=== PATIENT | female | born 1945 | race Caucasian/White ===

== ENCOUNTER 2020-03-28 12:54 | Outpatient (CLI) | payer MEDICARE, MEDICAID, SELFPAY ==
--- NOTE | 2020-03-28 13:03 | XR_ITS ---
WS: [id number] XR knee RT 3V* [id number] REASON FOR EXAM: OSTEOARTHRITIS FINDINGS: Degenerated changes of the medial meniscus. There is calcification along the medial and lateral meniscus consistent with chondrocalcinosis. The patella femoral articulation shows degenerate changes and loss of the joint space. A large spur i s seen off the suprapatellar patella ligament. Narrowing the patella tibial space is seen XR/XR knee RT 3V* [id number] IMPRESSION: Moderately severe osteoarthritic changes of the knee Severe degenerated changes of the patella femoral articulation. Low-grade chondrocalcinosis of the menisci.
== END 2020-03-28 12:55 | disposition home or self-care (01) ==
LOC: RADWPI 13:01
PROVIDERS: Family Provider Nurse Practitioner Family; PCP Nurse Practitioner Family; Visit Provider Nurse Practitioner Family
DX: M17.11 Unilateral primary osteoarthritis, right knee (principal); M11.261 Other chondrocalcinosis, right knee
CPT/HCPCS: 73562

== ENCOUNTER 2020-06-15 12:30 | Outpatient (CLI) | payer MEDICARE, MEDICAID, SELFPAY ==
--- NOTE | 2020-06-15 | USCV_ITS ---
Cheyanne Fung Age: 74 Gender: F : 1945 Exam Date: 06/15/2020 13:19 Ordering Phys: Judith Leon NP Technologist: Brady Solis [place] [facility] [place]ication: POSTERIOR RIGHT KNEE PAIN PROCEDURES: Venous duplex imaging was performed in only the right lower extremity. The following venous structures were evaluated: common femoral vein, profunda vein, proximal portion of the greater saphenous vein, superficial femoral vein, and the popliteal vein. In addition, the posterior tibial and peroneal trunk were evaluated. Serial compression, augmentation maneuvers, and spectral Doppler flow evaluation were performed. FINDINGS: Normal 2-D Doppler and augmentation and compressibility throughout the lower extremity venous structures. Additional imaging through the proximal calf veins also reveals no thrombus. Limited evaluation of the greater saphenous vein is patent with no thrombus. CONCLUSIONS No DVT right lower extremity. Dr. Savanna Champagne DO (Electronically Signed) Final Date: 15 June 2020 14:31 S
== END 2020-06-15 12:31 | disposition home or self-care (01) ==
LOC: RAD 12:37
PROVIDERS: PCP Nurse Practitioner Family; Visit Provider Nurse Practitioner Family
DX: M25.561 Pain in right knee (principal)
CPT/HCPCS: 93971

== ENCOUNTER 2020-12-17 14:08 | Outpatient (CLI) | payer MEDICARE, MEDICAID, SELFPAY ==
--- NOTE | 2020-12-17 14:27 | XR_ITS ---
WS: [id number] LEFT FOOT: 2 VIEW(S) TECHNIQUE: AP and lateral. HISTORY: FOOT PAIN, LEFT COMPARISON: None available. No acute fracture or dislocation. Overlapping proximal metatarsals. Osteophyte noted on the lateral projection from the dorsal navicula r. Diffuse moderate osteopenia interphalangeal joint space narrowing. Small calcaneal spur. Enthesopathy at the Achilles tendon. Peripheral arterial disease. XR/XR foot LT 2V [id number] IMPRESSION: 1. Osteopenia with osteoarthritis. 2. No fracture identified. 3. Peripheral arterial disease.
== END 2020-12-17 14:09 | disposition home or self-care (01) ==
PROVIDERS: PCP Nurse Practitioner Family; Visit Provider Nurse Practitioner Family
DX: M85.872 Other specified disorders of bone density and structure, left ankle and foot (principal); M19.072 Primary osteoarthritis, left ankle and foot; I73.9 Peripheral vascular disease, unspecified
CPT/HCPCS: 73620

== ENCOUNTER → 2021-01-29 14:13 | Outpatient (BNVA) | payer MEDICARE, MEDICAID, SELFPAY | PROVIDERS: PCP Nurse Practitioner Family; Referring Provider Family Medicine; Visit Provider Podiatrist Foot & Ankle Surgery | DX: M25.572 Pain in left ankle and joints of left foot (principal) | CPT/HCPCS: 77077 ==

== ENCOUNTER 2021-02-27 15:19 | Outpatient (CLI) | payer MEDICARE, MEDICAID, SELFPAY ==
--- NOTE | 2021-02-27 15:45 | USCV_ITS ---
Cheyanne Fung Age: 75 Gender: F : 1945 Exam Date: 02/27/2021 15:11 Ordering Phys: Azeem Champion DPM Technologist: Paty Jameson [place] [facility] [place]: DECREASED PEDAL PULSES RIGHT LEFT Brachial 157.00 mmHg Brachial 139.00 mmHg Pressure (mmHg) Waveform Pressure (mmHg) Waveform 183.00 High Thigh 177.00 178.00 Below Knee 164.00 DRAFTER PATENT 176.00 194.00 DPA 193.00 1.24 Ankle/Brachial Index 1.23 114.00 Pre-Exercise Toe Pressure 119.00 Pre-Exercise Toe/Brachial Index 0.76 0.73 FINDINGS Normal resting ABIs bilaterally Normal resting TBIs bilaterally PVR waveforms showing some blunting of the dicrotic notch CONCLUSIONS No significant arterial obstruction, based on the above findings Some features of arterial sclerosis Dr Ana Etienne MD [facility] (Electronically Signed) Final Date: 28 Feb 2021 16:48 S
== END 2021-02-27 15:20 | disposition home or self-care (01) ==
LOC: US 15:22
PROVIDERS: PCP Nurse Practitioner Family; Visit Provider Podiatrist Foot & Ankle Surgery
DX: R09.89 Other specified symptoms and signs involving the circulatory and respiratory systems (principal)
CPT/HCPCS: 93923

== ENCOUNTER 2021-11-09 00:38 | Inpatient (IN) | payer MEDICARE, MEDICAID, SELFPAY ==
[2021-11-09] VITALS (29 sets, daily range): BP systolic 103–178; BP diastolic 65–104; PULSE 67–92; RESP 10–18; TEMP 36.2–37; O2SAT 90–100; BMI 40.7
--- NOTE | 2021-11-09 | XR_ITS ---
WS: [id number] INTRAOPERATIVE TECHNIQUE: 7 Spot fluoroscopic images for intraoperative purposes. FLUOROSCOPY TIME: 212 seconds CLINICAL INFORMATION: [facility] P[facility] COMPARISON: None. FINDINGS: Intramedullary kirit and screw fixation right proximal femoral diaphyseal fracture. Distal femoral kirit with fixation screws. Prior right TKA. XR/XR femur RT 1V [id number] IMPRESSION: Images obtained for intraoperative purposes.
--- NOTE | 2021-11-09 | SCC_ITS ---
Procedure done: 1. Right intrameduallary nail for subtrochanteric femur fracture 212.1 seconds of fluoroscopic guidance, for a cumulative dose of 30.23 mGy, was provided to Dr. Snell by the radiology department. C-arm images of the RIGHT femur were saved for the patient's permanent record. [facility]
--- NOTE | 2021-11-09 00:41 | ED_ITS ---
Documented by User: JESSE Harley 11/09/21 02:18 HPI - Extremity Injury (Lower) General: Chief Complaint: ER Hold Stated Complaint: LEG INJURY Time Seen by Provider: 11/09/21 00:40 History of Present Illness: 75-year-old female comes in today for injury to the right hip. Patient reports tripping and falling and injuring her hip. Patient has a history of diabetes, hypertension, diabetic neuropathy, patient reports back surgery and bilateral knee surgery. Patient states history of cervical cancer, cancer of the liver, and melanoma. Review of Systems Musc: Reports: extremity pain (right upper leg) [facility] ED PFSH: Social History Smoking and tobacco status: former smoker Alcohol intake: never Current occupational status: retired Physical Exam Const: COMMON NORMALS: alert HENMT: COMMON NORMALS: atraumatic HEAD & SCALP: atraumatic Neck/C-Spine: COMMON NORMALS: full ROM Resp: COMMON NORMALS: normal respiratory effort and clear to auscultation bilaterally AUSCULTATION: clear to auscultation bilaterally Cardio: COMMON NORMALS: regular rate and regular rhythm RATE: regular rate RHYTHM: regular rhythm GI: COMMON NORMALS: Soft to palpation and non-tender PALPATION: Yes Soft to palpation Back/Pelvis: THORACIC SPINE/UPPER BACK: Yes normal to inspection LUMBAR SPINE/LOWER BACK: Yes normal to inspection Extremity: RIGHT LOWER EXTREMITY: Yes hip joint (Tenderness is noted to palpation) Right hip: Yes inspection, Yes palpation and No ROM and Yes upper leg (Tenderness is noted to palpation) Right upper leg: Yes inspection and Yes palpation Neuro: SENSORIUM/ORIENTATION: Yes alert Skin: COMMON NORMALS: no rashes or lesions noted GENERAL SKIN EXAM: no rashes or lesions noted Course ED course: 214, x-ray noted a subtrochanteric fracture of the right hip. I reviewed this with patient and then discussed with Dr. Torres for admission to the hospital. Patient was agreeable to plan. Vital Signs: Vital signs: Vital Signs Temperature 98.6 F 11/09/21 00:39 Pulse Rate 67 11/09/21 00:39 Respiratory Rate 18 11/09/21 03:10 Blood Pressure 178/65 11/09/21 00:39 Pulse Oximetry 95 11/09/21 00:39 MDM - Extremity Injury (Lower) Medical Decision Making 75-year-old female comes in today with injury secondary to a fall at her home in [place]. Patient reports tripping and falling at home. Patient reports right leg pain. On exam patient has leg resting in a internal rotation. Distal pulses are intact. Sensation is noted to the toes. Patient does have a history of diabetes neuropathy. Differential diagnosis includes hip fracture, femur fracture, dislocation of the hip. X-ray of the hip and pelvis noted a subtrochanteric fracture of the right hip. No fracture was noted in the pelvis. Reviewed exam with Dr. Torres who agreed to have patient admitted to the hospital to orthopedic services for repair and management to the hospitalist for diabetic and medical services. Lab Data : 11/09/21 01:22 11/09/21 01: Radiology Impressions Pelvis X-Ray 11/09/21 00:45 IMPRESSION: 1. Negative for fracture or dislocation. 2. Kplf-lz-vuvzbtyf osteoarthritis of the hips bilaterally. 3. Lumbar spine surgical hardware. ADDENDUM: 11/09/21 0159 Same-day right femoral film demonstrates a proximal right femoral fracture, not well appreciated on this exam, please refer to same-day right femoral radiographs. Femur X-Ray 11/09/21 00:51 IMPRESSION: Proximal femoral diaphysis obliquely oriented mildly comminuted fracture with overlap of the fracture fragments. Laboratory Results WBC 11.0 10^3/uL (4.0-10.0) H 11/09/21: RBC 5.24 10^6/uL (4.1-5.3) 11/09/21: Hgb 14.7 g/dL (11.5-15.3) 11/09/21: Hct 45.7 % (37.0-47.0) 11/09/21: MCV 87.2 fl (81-99) 11/09/21: MCH 28.1 pg (28.0-34.0) 11/09/21: MCHC 32.2 g/dL (30.0-36.0) 11/09/21: RDW 14.7 % (12.1-15.1) 11/09/21: Plt Count 158 10^3/cmm (130-400) 11/09/21: MPV 10.9 fL (7.4-10.4) H 11/09/21 01: Neut % (Auto) 76.2 % 11/09/21 01: Lymph % (Auto) 13.9 % 11/09/21 01: [place] % (Auto) 7.4 % 11/09/21 01: Eos % (Auto) 1.5 % 11/09/21 01: Baso % (Auto) 0.5 % 11/09/21 01: Neut # (Auto) 8.38 10^3/uL (1.8-7.7) H 11/09/21: Lymph # (Auto) 1.5 10^3/uL (0.8-4.8) 11/09/21: [place] # (Auto) 0.8 10^3/uL (0.2-0.9) 11/09/21 01: Eos # (Auto) 0.2 10^3/uL (0.0-0.8) 11/09/21 01: Baso # (Auto) 0.1 10^3/uL (0.0-0.1) 11/09/21 01: Nucleated RBC % (auto) 0 % 11/09/21: Nucleated RBCs # 0.0 /100WBC 11/09/21 01: Sodium 139 mmol/L (136-145) 11/09/21: Potassium 3.4 mmol/L (3.5-5.1) L 11/09/21: Chloride 99 mmol/L (98-107) 11/09/21 01: Carbon Dioxide 29 mmol/L (22-29) 11/09/21 01: Anion Gap 14.4 (5-19) 11/09/21: BUN 10 mg/dL (8-23) 11/09/21: Creatinine 0.6 mg/dL (0.5-0.9) 11/09/21: GFR Calculation Not Reportable 11/09/21: Glucose 222 mg/dL (65-115) H 11/09/21: Calculated Osmolality 294 mOsm/kg (285-295) 11/09/21 01: Calcium 8.6 mg/dL (8.5-10.5) 11/09/21 01:22 Total Bilirubin 0.4 mg/dL (0.15-1.2) 11/09/21 01: AST 26 U/L (0-32) 11/09/21 01:22 ALT 21 U/L (0-33) 11/09/21 01:22 Alkaline Phosphatase 147 IU/L (35-105) H 11/09/21 01:22 Total Protein 6.9 g/dL (6.6-8.7) 11/09/21 01: Albumin 4.0 g/dL (3.5-5.2) 11/09/21 01: Globulin 2.9 g/dL (1.3-4.6) 11/09/21 01:22 Discharge Plan Discharge Patient Disposition: Admitted As Inpatient Admit Provider: Alphonso Avendaño Clinical Impression: Closed femur fracture Condition: Stable Coding Level of Care Code ED Rehabilitation Engineer for Chg Fwd Exam Comprehensive Medical Decision Making Moderate Complexity Time Spent (min) 40 Documented by User: Phil Torres DO 11/09/21 03:29 HPI - Extremity Injury (Lower) General: Chief Complaint: ER Hold Stated Complaint: LEG INJURY Time Seen by Provider: 11/09/21 00:40 [facility] ED PFSH: Social History Smoking and tobacco status: former smoker Alcohol intake: never Current occupational status: retired Course Consultations: Consultation #1: maggie Consultation #2: darwin Vital Signs: Vital signs: Vital Signs Temperature 98.6 F 11/09/21 00:39 Pulse Rate 67 11/09/21 00:39 Respiratory Rate 18 11/09/21 03:10 Blood Pressure 178/65 11/09/21 00:39 Pulse Oximetry 95 11/09/21 00:39 MDM - Extremity Injury (Lower) Medical Decision Making 75-year-old female comes in today with injury secondary to a fall at her home in [place]. Patient reports tripping and falling at home. Patient reports right leg pain. On exam patient has leg resting in a internal rotation. Distal pulses are intact. Sensation is noted to the toes. Patient does have a history of diabetes neuropathy. Differential diagnosis includes hip fracture, femur fracture, dislocation of the hip. X-ray of the hip and pelvis noted a sub trochanteric fracture of the right hip. No fracture was noted in the pelvis. Reviewed exam with Dr. Torres who agreed to have patient admitted to the hospital to orthopedic services for repair and management to the hospitalist for diabetic and medical services. This patient was originally seen by JESSE Dawson.? I agree with his history, evaluation, and treatment. This patient will be admitted for right subtrochanteric hip fracture. Lab Data : 11/09/21 01:11/09/21: Radiology Impressions Pelvis X-Ray 11/09/21 00:45 IMPRESSION: 1. Negative for fracture or dislocation. 2. Karb-zu-ejyiturn osteoarthritis of the hips bilaterally. 3. Lumbar spine surgical hardware. ADDENDUM: 11/09/21 0159 Same-day right femoral film demonstrates a proximal right femoral fracture, not well appreciated on this exam, please refer to same-day right femoral radiographs. Femur X-Ray 11/09/21 00:51 IMPRESSION: Proximal femoral diaphysis obliquely oriented mildly comminuted fracture with overlap of the fracture fragments. Laboratory Results WBC 11.0 10^3/uL (4.0-10.0) H 11/09/21: RBC 5.24 10^6/uL (4.1-5.3) 11/09/21: Hgb 14.7 g/dL (11.5-15.3) 11/09/21: Hct 45.7 % (37.0-47.0) 11/09/21: MCV 87.2 fl (81-99) 11/09/21: MCH 28.1 pg (28.0-34.0) 11/09/21: MCHC 32.2 g/dL (30.0-36.0) 11/09/21: RDW 14.7 % (12.1-15.1) 11/09/21: Plt Count 158 10^3/cmm (130-400) 11/09/21: MPV 10.9 fL (7.4-10.4) H 11/09/21: Neut % (Auto) 76.2 % 11/09/21 01: Lymph % (Auto) 13.9 % 11/09/21: [place] % (Auto) 7.4 % 11/09/21: Eos % (Auto) 1.5 % 11/09/21 01: Baso % (Auto) 0.5 % 11/09/21 01: Neut # (Auto) 8.38 10^3/uL (1.8-7.7) H 11/09/21: Lymph # (Auto) 1.5 10^3/uL (0.8-4.8) 11/09/21: [place] # (Auto) 0.8 10^3/uL (0.2-0.9) 11/09/21: Eos # (Auto) 0.2 10^3/uL (0.0-0.8) 11/09/21: Baso # (Auto) 0.1 10^3/uL (0.0-0.1) 11/09/21: Nucleated RBC % (auto) 0 % 11/09/21: Nucleated RBCs # 0.0 /100WBC 11/09/21: Sodium 139 mmol/L (136-145) 11/09/21: Potassium 3.4 mmol/L (3.5-5.1) L 11/09/21: Chloride 99 mmol/L (98-107) 11/09/21: Carbon Dioxide 29 mmol/L (22-29) 11/09/21: Anion Gap 14.4 (5-19) 11/09/21: BUN 10 mg/dL (8-23) 11/09/21: Creatinine 0.6 mg/dL (0.5-0.9) 11/09/21: GFR Calculation Not Reportable 11/09/21: Glucose 222 mg/dL (65-115) H 11/09/21: Calculated Osmolality 294 mOsm/kg (285-295) 11/09/21 01:22 Calcium 8.6 mg/dL (8.5-10.5) 11/09/21:22 Total Bilirubin 0.4 mg/dL (0.15-1.2) 11/09/21: AST 26 U/L (0-32) 11/09/21: ALT 21 U/L (0-33) 11/09/21: Alkaline Phosphatase 147 IU/L (35-105) H 11/09/21: Total Protein 6.9 g/dL (6.6-8.7) 11/09/21: Albumin 4.0 g/dL (3.5-5.2) 11/09/21: Globulin 2.9 g/dL (1.3-4.6) 11/09/21:22 Discharge Plan Discharge Patient Disposition: Admitted As Inpatient Admit Provider: Alphonso Avendaño Clinical Impression: Closed femur fracture Condition: Stable Coding Level of Care Code ED Rehabilitation Engineer for Chg Fwd Exam Comprehensive Medical Decision Making Moderate Complexity Time Spent (min) 40
--- NOTE | 2021-11-09 00:45 | XRR_ITS ---
PROCEDURE INFORMATION: Exam: XR Pelvis Exam date and time: 11/09/2021 12:45 AM Age: 75 years old Clinical indication: Injury or trauma; Blunt trauma (contusions or hematomas); Right; Hip; Patient HX: Fall today at home. Gross external rotation of RT leg into lateral position. Best films obtained due to habitus. TECHNIQUE: Imaging protocol: XR pelvis. Views: 1 or 2 view. COMPARISON: CT Chest/Abdomen/Pelvis [facility] 03/10/2016 7:28 PM FINDINGS: Bones/joints: Jruv-ew-lamgqptw osteoarthritis of the hips bilaterally. Lumbar spine surgical hardware. Soft tissues: Unremarkable. XR/XR pelvis 1-2V* [id number] IMPRESSION: 1. Negative for fracture or dislocation. 2. Pdix-zh-vzryeprw osteoarthritis of the hips bilaterally. 3. Lumbar spine surgical hardware.
--- NOTE | 2021-11-09 00:51 | XRR_ITS ---
PROCEDURE INFORMATION: Exam: XR Right Femur Exam date and time: 11/09/2021 12:51 AM Age: 75 years old Clinical indication: Injury or trauma; Blunt trauma; Hip; Right; Prior surgery; Surgery type: Total knee; Patient HX: Fall today at home. Gross external rotation of RT leg into lateral position. Best films obtained due to habitus. TECHNIQUE: Imaging protocol: XR Right femur. Views: 2 views. COMPARISON: CR (PELVIS, ) 11/09/2021 12:55 AM FINDINGS: Bones/joints: Proximal femoral diaphysis obliquely oriented mildly comminuted fracture with overlap of the fracture fragments. Soft tissues: Unremarkable. XR/XR femur RT min 2V* [id number] IMPRESSION: Proximal femoral diaphysis obliquely oriented mildly comminuted fracture with overlap of the fracture fragments.
[2021-11-09] MEDS: ondansetron 2 mg/ML SDV 2 mL 4 MG IVP ×2 (01:15→13:50)
[2021-11-09] MEDS: fentaNYL 50 mcg/mL INJ 2mL IVP ×2 (01:15→09:19)
[2021-11-09 01:25] LABS: Basophils # 0.1 10^3/uL (0.0-0.1); Basophils % 0.5 %; Eosinophils # 0.2 10^3/uL (0.0-0.8); Eosinophils % 1.5 %; Hematocrit 45.7 % (37.0-47.0); Hemoglobin 14.7 g/dL (11.5-15.3); Lymphocytes # 1.5 10^3/uL (0.8-4.8); Lymphocytes % 13.9 %; Mean Corpuscular HGB Conc 32.2 g/dL (30.0-36.0); Mean Corpuscular Hemoglobin 28.1 pg (28.0-34.0); Mean Corpuscular Volume 87.2 fl (81-99); Mean Platelet Volume 10.9 fL (7.4-10.4); Monocytes # 0.8 10^3/uL (0.2-0.9); Monocytes % 7.4 %; Neutrophils # 8.38 10^3/uL (1.8-7.7); Neutrophils % 76.2 %; Nucleated Red Blood Cells % 0 %; Platelet Count 158 10^3/cmm (130-400); Red Blood Count 5.24 10^6/uL (4.1-5.3); Red Cell Distribution Width 14.7 % (12.1-15.1)
[2021-11-09 01:47] LABS: Alanine Aminotransferase 21 U/L (0-33); Alkaline Phosphatase 147 IU/L (35-105); Anion Gap 14.4 (5-19); Aspartate Amino Transferase 26 U/L (0-32); Blood Urea Nitrogen 10 mg/dL (8-23); Calcium 8.6 mg/dL (8.5-10.5); Carbon Dioxide 29 mmol/L (22-29); Chloride 99 mmol/L (98-107); Globulin 2.9 g/dL (1.3-4.6); Glucose 222 mg/dL (65-115); Osmolality Calculated 294 mOsm/kg (285-295); Potassium 3.4 mmol/L (3.5-5.1); Sodium 139 mmol/L (136-145); Total Bilirubin 0.4 mg/dL (0.15-1.2); Total Protein 6.9 g/dL (6.6-8.7)
[2021-11-09] MEDS: orphenadrine 30 mg/mL Inj 2 mL 60 MG IVP (03:09)
[2021-11-09] MEDS: morphine 4 mg/mL SDV 1 mL 2 MG IVP ×3 (03:10→13:07)
--- NOTE | 2021-11-09 04:32 | XRR_ITS ---
PROCEDURE INFORMATION: Exam: XR Chest Exam date and time: 11/09/2021 4:32 AM Age: 75 years old Clinical indication: Shortness of breath; Patient HX: SOB with hypertension. TECHNIQUE: Imaging protocol: XR of the chest. Views: 1 view. COMPARISON: CT chest con [id number] 11/26/2018 12:10 PM FINDINGS: Lungs: Mild increased perihilar markings which may be exaggerated by low lung volumes. No consolidation. Pleural spaces: Unremarkable. No pleural effusion. No pneumothorax. Heart/Mediastinum: No cardiomegaly. Bones/joints: Chronic left rib fractures. XR/XR chest 1V portable [id number] IMPRESSION: Mild increased perihilar markings which may be exaggerated by low lung volumes. Mild pulmonary vascular congestion not excluded.
--- NOTE | 2021-11-09 04:42 | P.HP_ITS ---
Providers/Chief Complaint Admitting Physician: Alphonso Avendaño MD Primary Care Provider: Judith Leon NP Chief Complaint: LEG INJURY History of Present Illness Cheyanne Fung is a 75 year old female with a past medical history of hypertension, insulin-dependent type 2 diabetes mellitus, hyperlipidemia, who presents to [facility] as she slipped and fell at roughly 11 PM last night, fell on her right hip, immediately had right hip pain, right leg pain, no loss of consciousness, no head trauma, no preceding lightheadedness, no dizziness, no chest pain, no palpitations, no history of UTIs, no dysuria, no hematuria, no strokelike symptoms no facial droop, no slurring of words, no paresthesias. In the emergency room she was diagnosed with a right proximal femoral diaphysis fracture. Dr. Snell from orthopedic service will be contacted by ER provider. Hospitalist team was called for medical management. Review of Systems Const: Denies: fever(s), chills, fatigue or malaise Eyes: Denies: change in vision or blurry vision ENMT: Denies: nasal congestion Resp: Denies: dyspnea, productive cough, non-productive cough or wheezing GI: Denies: abdominal pain, nausea, vomiting, hematemesis, diarrhea, constipation, hematochezia or melena : Denies: flank pain, dysuria or urinary frequency Musc: Denies: neck pain or back pain Skin/Breast: Denies: rash Neuro: Denies: headache(s), dizziness or vertigo Psych: Denies: anxiety or depression Endo: Denies: polyuria or polydipsia Medications/Allergies Home Medications Medication Instructions Recorded Confirmed Last Taken Type gabapentin 400 mg capsule 400 mg PO TID 01/29/21 05/21/21 Unknown History hydrochlorothiazide 25 mg tablet 25 mg PO DAILY 01/29/21 05/21/21 Unknown History insulin aspart U-100 100 unit/mL 1 sliding scale dose SUBCUT QID ml 01/29/21 05/21/21 Unknown History subcutaneous solution (Novolog U-100 Insulin aspart) insulin glargine 100 unit/mL 60 unit SUBCUT .bedtime ml 01/29/21 05/21/21 Unknown History subcutaneous solution (Lantus U-100 Insulin) insulin glargine 100 unit/mL 80 unit SUBCUT .morning ml 01/29/21 05/21/21 Unknown History subcutaneous solution (Lantus U-100 Insulin) irbesartan 150 mg tablet 150 mg PO DAILY 01/29/21 05/21/21 Unknown History metoprolol succinate 50 mg 50 mg PO DAILY 01/29/21 05/21/21 Unknown History tablet,extended release 24 hr potassium chloride 10 mEq 20 meq PO DAILY tab 01/29/21 05/21/21 Unknown History tablet,extended release pravastatin 80 mg tablet 80 mg PO DAILY 01/29/21 05/21/21 Unknown History tizanidine 2 mg capsule 2 mg PO DAILY cap 01/29/21 05/21/21 Unknown History Allergies Allergy/AdvReac Type Severity Reaction Status Date / Time adhesive tape Allergy hives Verified 11/09/21 00:48 Sulfa (Sulfonamide Allergy unknonwn Verified 11/09/21 00:48 Antibiotics) PFSH Acute PFSH: Medical History (Updated 11/09/21 @ 04:47 by Alphonso Avendaño MD) Hypertension Type 2 diabetes mellitus Type 2 diabetes mellitus with diabetic polyneuropathy Surgical History (Updated 11/09/21 @ 04:47 by Alphonso Avendaño MD) History of back surgery History of History of hysterectomy History of total knee arthroplasty Social History Smoking and tobacco status: former smoker Alcohol intake: never Current occupational status: retired Vitals/I&O/Wt Last Vital Signs Temp 98.6 F 11/09/21 00:39 Pulse 67 11/09/21 00:39 Resp 18 11/09/21 03:10 BP 178/65 11/09/21 00:39 Pulse Ox 95 11/09/21 00:39 Weight last 48 hrs Weight 104.326 kg Physical Exam Const: COMMON NORMALS: no acute distress and patient oriented x3 HENMT: COMMON NORMALS: normocephalic HEAD & SCALP: normocephalic Eye: COMMON NORMALS: Equal, round and reactive pupils present and EOMs intact bilaterally Neck/C-Spine: COMMON NORMALS: no JVD Lymph: LYMPHATIC: no lymphadenopathy noted Resp: COMMON NORMALS: normal respiratory effort, No retractions, No use of accessory muscles and clear to auscultation bilaterally AUSCULTATION: clear to auscultation bilaterally Cardio: COMMON NORMALS: regular rate, regular rhythm, S1 normal heart sound present and S2 normal heart sound present RATE: regular rate RHYTHM: regul ar rhythm HEART SOUNDS: S1 normal heart sound present and S2 normal heart sound present GI: COMMON NORMALS: Normal to inspection, nondistended, normoactive bowel sounds present, Soft to palpation, non-tender, No hepatosplenomegaly present, no masses and no bruits PALPATION: Yes Soft to palpation and Yes No hepatosplenomegaly present Extremity: COMMON NORMALS: capillary refill normal, no clubbing, cyanosis or edema, no calf tenderness and no pedal edema NARRATIVE EXTREMITY EXAM: Right leg, externally rotated, shortened Neuro: COMMON NORMALS: patient oriented x3 and CN's II-XII intact bilaterally OTHER: Decreased motion right lower extremity, moves left lower extremity, can wiggle both toes of bilateral lower extremities Psych: COMMON NORMALS: mental status grossly normal Data : 11/09/21 01:22 11/09/21 01:22 A&P Assessment and plan (1) Closed femur fracture: Status: Acute Qualifiers: Encounter type: initial encounter Femur location: subtrochanteric Fracture alignment: displaced Laterality: right Qualified Code(s): S72.21XA - Displaced subtrochanteric fracture of right femur, initial encounter for closed fracture Plan Proximal femoral diaphysis obliquely oriented mildly comminuted fracture with overlap of the fracture fragments. -Pain control morphine -PT OT -Dr. Snell will be consulted by ER provider -Full code -DVT prophylaxis SCDs, anticoagulation currently on hold and plans for surgery Type 2 diabetes mellitus -Currently n.p.o. -Hold glargine 60 units twice daily -Low-dose sliding scale Hyperlipidemia continue pravastatin Hypertension, continue hydrochlorothiazide, metoprolol Follow UA Follow EKG, serial troponins, BMP Attestations Medical Necessity Statement*: Patient requires hospitalization, inpatient, greater than 2 midnights, for right femoral fracture Coding Level of Care Code Acute Paring Machine Operator for Carol Fwd History Detailed Exam Detailed Medical Decision Making Moderate Complexity Diagnoses Closed femur fracture S72.21XA Encounter type: initial encounter Femur location: subtrochanteric Fracture alignment: displaced Laterality: right Time Spent (min) 45
[2021-11-09 05:32] LABS: Add Urine Microscopic? NO; Charge for UA Resulting for Rev
[2021-11-09 05:37] LABS: Bilirubin Urine Neg (Negative); Blood Urine Neg (Negative); Glucose Urine UA 2+ (Normal); Ketones Urine Negative (Negative); Leukocyte Esterase Urine Negative (Negative); Nitrate Urine Negative (Negative); Protein Urine Neg (Negative); Urine Appearance Clear (CLEAR); Urine Color Yellow (Yellow); Urobilinogen Urine 1 mg/dL (Negative); pH Urine 5 (5-7)
--- NOTE | 2021-11-09 06:33 | ECG_ITS ---
[facility] Test Date: 2021-11-09 Pat Name: Cheyanne Fung Department: Room: ED Gender: Female Senior Internet Sales Consultant: : 1945 Requested By: Alphonso Avendaño Order Number: [id number] Reading MD: SANDRA VALDOVINOS Measurements Intervals Brothers Rate: 75 P: 55 WY: 156 QRS: -24 QRSD: 89 T: -3 QT: 405 QTc: 455 Interpretive Statements SINUS RHYTHM BORDERLINE LEFT AXIS DEVIATION [QRS AXIS < -20] No previous ECG available for comparison Electronically Signed On 11-09-2021 17:46:30 INSTALLATION TECH by SANDRA VALDOVINOS [email or web address]
[2021-11-09] MEDS: dextrose 5%-sod chloride 0.9% 1,000 ML 75 ML IV ×2 (06:54→17:33)
[2021-11-09 08:27] LABS: Estmated Average Glucose 235; Hemoglobin A1C 9.8 % (4.0-6.0)
--- NOTE | 2021-11-09 08:33 | PM.CONSULT ---
Providers/Reason For Consult Consulting Physician/Specialty*: Orthopedics Reason for Consult*: Right hip and leg pain Attending Physician: Abisai Snell DO Primary Care Provider: Judith Leon NP History of Present Illness History of Present Illness Cheyanne Fung is a 75 year old female who fell last evening 11/08/2021 seen injury to her right hip and leg. She felt immediate pain was sharp stabbing constant nature any movement made it much worse. She was transported to [facility] where x-rays confirmed a right femur fracture. Orthopedics was then consulted for her injuries. She was evaluated in emergency room based 7. She had constant sharp stabbing pain to the right hip and leg region. Any movement makes it much worse. She has had previous knee replacement surgery in [facility] as well as [facility]. She has had a number of back surgeries as well. Currently the pain is localized to her right leg with obvious deformity. She denied any loss of consciousness in the fall. Denies any changes in her back pain. Medications rest is the only thing is giving her some temporary relief. Movement of her right leg makes her symptoms much worse. Ranks the pain as 10 out of 10 with any movement of the right leg. Denies any pain in her knees or ankles. An extensive review of the patient's past medical history, surgical history, allergies, medications, family history, social history, and review of systems was completed Review of Systems Const: Denies: fever(s), chills, fatigue or malaise Eyes: Denies: change in vision or blurry vision ENMT: Denies: nasal congestion Resp: Denies: dyspnea, productive cough, non-productive cough or wheezing GI: Denies: abdominal pain, nausea, vomiting, hematemesis, diarrhea, constipation, hematochezia or melena : Denies: flank pain, dysuria or urinary frequency Musc: Denies: neck pain or back pain Skin/Breast: Denies: rash Neuro: Denies: headache(s), dizziness or vertigo Psych: Denies: anxiety or depression Endo: Denies: polyuria or polydipsia Medications/Allergies Home Medications Medication Instructions Recorded Confirmed Last Taken Type gabapentin 400 mg capsule 400 mg PO TID 01/29/21 05/21/21 Unknown History hydrochlorothiazide 25 mg tablet 25 mg PO DAILY 01/29/21 05/21/21 Unknown History insulin aspart U-100 100 unit/mL 1 sliding scale dose SUBCUT QID ml 01/29/21 05/21/21 Unknown History subcutaneous solution (Novolog U-100 Insulin aspart) insulin glargine 100 unit/mL 60 unit SUBCUT .bedtime ml 01/29/21 05/21/21 Unknown History subcutaneous solution (Lantus U-100 Insulin) insulin glargine 100 unit/mL 80 unit SUBCUT .morning ml 01/29/21 05/21/21 Unknown History subcutaneous solution (Lantus U-100 Insulin) irbesartan 150 mg tablet 150 mg PO DAILY 01/29/21 05/21/21 Unknown History metoprolol succinate 50 mg 50 mg PO DAILY 01/29/21 05/21/21 Unknown History tablet,extended release 24 hr potassium chloride 10 mEq 20 meq PO DAILY tab 01/29/21 05/21/21 Unknown History tablet,extended release pravastatin 80 mg tablet 80 mg PO DAILY 01/29/21 05/21/21 Unknown History tizanidine 2 mg capsule 2 mg PO DAILY cap 01/29/21 05/21/21 Unknown History Allergies Allergy/AdvReac Type Severity Reaction Status Date / Time adhesive tape Allergy hives Verified 11/09/21 00:48 Sulfa (Sulfonamide Allergy unknonwn Verified 11/09/21 00:48 Antibiotics) Current Medications Generic Name Dose Route Start Last Admin Trade Name Freq PRN Reason Stop Dose Admin Docusate Sodium 100 mg 11/09/21 09:00 11/09/21 08:25 Docusate Sodium 100 Mg Capsule PO Not Given BID OLU Famotidine 20 mg 11/09/21 09:00 11/09/21 08:25 Famotidine 20 Mg Tablet PO Not Given BID OLU Gabapentin 400 mg 11/09/21 09:00 11/09/21 08:25 Gabapentin 400 Mg Capsule PO Not Given TID OLU Hydrochlorothiazide 25 mg 11/09/21 09:00 11/09/21 08:25 Hydrochlorothiazide 25 Mg Tablet PO Not Given DAILY OLU Dextrose/Sodium Chloride 1,000 mls @ 75 mls/hr 11/09/21 04:45 11/09/21 06:54 Dextrose 5%-Sod Chloride 0.9% IV 75 mls/hr .[id number] OLU Administration Insulin Glargine 10 unit 11/09/21 08:00 11/09/21 07:50 Insulin Glargine 100 Units/1 Ml SUBCUT Not Given Q12H [facility] Insulin Human Lispro 0 unit 11/09/21 08:00 11/09/21 07:40 Insulin Lispro 100 Unit/1 Ml SUBCUT Not Given TIDWM [facility] Protocol Metoprolol Succinate 50 mg 11/09/21 09:00 11/09/21 08:25 Metoprolol Succinate Er (24 Hr) 50 Mg Tablet PO Not Given DAILY [facility] Morphine Sulfate 2 mg 11/09/21 04:37 11/09/21 07:41 Morphine 4 Mg/Ml Sdv 1 Ml IVP 2 mg Q4H PRN Administration SEVERE PAIN PFSH Acute PFSH: Medical History Hypertension Type 2 diabetes mellitus Type 2 diabetes mellitus with diabetic polyneuropathy Surgical History History of back surgery History of History of hysterectomy History of total knee arthroplasty Social History Smoking and tobacco status: former smoker Alcohol intake: never Current occupational status: retired Vitals/I&O/Wt Last Vital Signs Temp 98.6 F 11/09/21 00:39 Pulse 78 11/09/21 08:00 Resp 18 11/09/21 08:00 BP 149/81 11/09/21 08:00 Pulse Ox 94 11/09/21 08:10 Weight last 48 hrs Weight 230 lb Physical Exam Narrative: EXAM NARRATIVE: She is alert oriented x3 has good general appearance mild acute distress. Obvious deformity of the right lower extremity with well-healed incisions over both knees from previous knee replacement surgery. She has positive logroll on the right negative on the left. She has no palpable pain down the left lower extremity at the hip knee or ankle. She has palpable pain over the right femur and thigh region. She has no palpable pain over the right knee or ankle. She is able to wiggle her toes on the right slightly with full range of motion on the left. Pulses are palpable at the dorsalis pedis posterior tibial region. Calves are supple. She has normal station light touch. She has good cap refill all digits. She has full range of motion of the left lower extremity at the hip knee and ankle. She has well-healed incision in the midline of her lumbar spine from previous back surgery. She has no palpable pain in the lumbar thoracic or cervical spine. Full range of motion of her cervical spine. Full range of motion both upper extremities at the shoulders elbows and wrists. Hands warm good cap refill radial pulses are palpable no palpable edema no palpable lymph nodes. Const: COMMON NORMALS: patient oriented x3 HENMT: COMMON NORMALS: normocephalic and atraumatic HEAD & SCALP: normocephalic and atraumatic Resp: COMMON NORMALS: normal respiratory effort Cardio: COMMON NORMALS: regular rate and regular rhythm RATE: regular rate RHYTHM: regular rhythm GI: COMMON NORMALS: Soft to palpation PALPATION: Yes Soft to palpation : COMMON NORMALS: Yes no CVA tenderness BLADDER/KIDNEY EXAM: Yes no CVA tenderness Back/Pelvis: COMMON NORMALS: no CVA tenderness Neuro: COMMON NORMALS: patient oriented x3 Psych: COMMON NORMALS: cooperative Urinary Catheter Management: Baxter: Cath Placed During This Visit: yes Reason for Continuing Indwelling Catheter: Accurate Measurement of Urinary Output in Critically Ill Patients Urinary Catheter Date of Insertion: 11/09/21 Data : 11/09/21 01:22 11/09/21 01:22 A&P Assessment and plan (1) Subtrochanteric fracture of right femur: Discussed open reduction internal fixation with intramedullary nail to the right femur. Discussed the risks and benefits of the procedure was complement to bleeding infection nerve damage continued left leg and hip pain need for surgery due to nonunion reaction to anesthesia. She understands these risks and wished to proceed. Discussed with Dr. Marie and he agrees above-stated plan. Status: Acute Coding Level of Care Code New Pt Acute Quality Audit Representative for [facility] Fwd Patient Type New History Problem Focused Exam Expanded Problem Focused Medical Decision Making Moderate Complexity Diagnoses Subtrochanteric fracture of right femur S72.21XA Time Spent (min) 30
[2021-11-09 08:35] LABS: Troponin(5th) Baseline 11 ng/L (0-10)
[2021-11-09 08:44] LABS: Creatine Phosphokinase 80 U/L (26-192); Magnesium 1.8 mg/dL (1.7-2.3); NT Pro B Type Natriuretic Pept 34 pg/mL (0-450)
--- NOTE | 2021-11-09 08:53 | ANES.PREANE2 ---
Pre-Anesthetic Assessment Height/Weight: Height 1.6 m Weight 104.326 kg Temp Pulse Resp BP Pulse Ox 98.6 F 78 18 149/81 94 11/09/21 00:39 11/09/21 08:00 11/09/21 08:00 11/09/21 08:00 11/09/21 08:10 Operation Date: 11/09/21 10:00 Proposed Procedures p IM Femoral Nail Insertion(Right) - Abisai Snell, DO Familial anesthetic complications: None Was Beta Eduarda taken within 24 hours: N/A Was Clonidine taken within 24 hours: N/A Last intake: 11/08/21 Social No alcohol and No tobacco Exam alert, oriented x 3, clear to auscultation bilaterally and regular rate & rhythm Airway Submandibular: within normal limits Cervical ROM: within normal limits Mallampati: Class II Dentition: false History/ROS No significant history except as noted Pulmonary Exertional Dyspnea Uses walker CV/HEM Hypertension Denies CAD None reported Hepatic None reported GI Gastroesophageal Reflux Disease Metabolic Diabetes Mellitus and Morbid Obesity Musc/skel Osteoarthritis/DJD Anesthetic Plan ASA status: 3 (Morbidly obese 75 year old diabetic with acute fracture) Anesthesia: Anesthesia Evaluation, General and Regional (specify below) (Fascial iliaca/femoral nerve block for post op pain control) Other: Patient prefers general. Plan regional for post op pain control, general for main anesthesia. Medications/Allergies Home Medications Medication Instructions Recorded Confirmed Last Taken Type gabapentin 400 mg capsule 400 mg PO TID 01/29/21 05/21/21 Unknown History hydrochlorothiazide 25 mg tablet 25 mg PO DAILY 01/29/21 05/21/21 Unknown History insulin aspart U-100 100 unit/mL 1 sliding scale dose SUBCUT QID ml 01/29/21 05/21/21 Unknown History subcutaneous solution (Novolog U-100 Insulin aspart) insulin glargine 100 unit/mL 60 unit SUBCUT .bedtime ml 01/29/21 05/21/21 Unknown History subcutaneous solution (Lantus U-100 Insulin) insulin glargine 100 unit/mL 80 unit SUBCUT .morning ml 01/29/21 05/21/21 Unknown History subcutaneous solution (Lantus U-100 Insulin) irbesartan 150 mg tablet 150 mg PO DAILY 01/29/21 05/21/21 Unknown History metoprolol succinate 50 mg 50 mg PO DAILY 01/29/21 05/21/21 Unknown History tablet,extended release 24 hr potassium chloride 10 mEq 20 meq PO DAILY tab 01/29/21 05/21/21 Unknown History tablet,extended release pravastatin 80 mg tablet 80 mg PO DAILY 01/29/21 05/21/21 Unknown History tizanidine 2 mg capsule 2 mg PO DAILY cap 01/29/21 05/21/21 Unknown History Allergies Allergy/AdvReac Type Severity Reaction Status Date / Time adhesive tape Allergy hives Verified 11/09/21 00:48 Sulfa (Sulfonamide Allergy unknonwn Verified 11/09/21 00:48 Antibiotics) Current Medications Generic Name Dose Route Start Last Admin Trade Name Freq PRN Reason Stop Dose Admin Docusate Sodium 100 mg 11/09/21 09:00 11/09/21 08:25 Docusate Sodium 100 Mg Capsule PO Not Given BID [facility] Famotidine 20 mg 11/09/21 09:00 11/09/21 08:25 Famotidine 20 Mg Tablet PO Not Given BID [facility] Gabapentin 400 mg 11/09/21 09:00 11/09/21 08:25 Gabapentin 400 Mg Capsule PO Not Given TID [facility] Hydrochlorothiazide 25 mg 11/09/21 09:00 11/09/21 08:25 Hydrochlorothiazide 25 Mg Tablet PO Not Given DAILY [facility] Dextrose/Sodium Chloride 1,000 mls @ 75 mls/hr 11/09/21 04:45 11/09/21 06:54 Dextrose 5%-Sod Chloride 0.9% IV 75 mls/hr .[id number] [facility] Administration Insulin Glargine 10 unit 11/09/21 08:00 11/09/21 07:50 Insulin Glargine 100 Units/1 Ml SUBCUT Not Given Q12H [facility] Insulin Human Lispro 0 unit 11/09/21 08:00 11/09/21 07:40 Insulin Lispro 100 Unit/1 Ml SUBCUT Not Given TIDWM [facility] Protocol Metoprolol Succinate 50 mg 11/09/21 09:00 11/09/21 08:25 Metoprolol Succinate Er (24 Hr) 50 Mg Tablet PO Not Given DAILY [facility] Morphine Sulfate 2 mg 11/09/21 04:37 11/09/21 07:41 Morphine 4 Mg/Ml Sdv 1 Ml IVP 2 mg Q4H PRN Administration SEVERE PAIN PFSH Anesthesia Medical History Hypertension Type 2 diabetes mellitus Type 2 diabetes mellitus with diabetic polyneuropathy Surgical History History of back surgery History of History of hysterectomy History of total knee arthroplasty Social History Smoking and tobacco status: former smoker Alcohol intake: never Current occupational status: retired Data Anesthesia : 11/09/21 01:22 11/09/21 01:22 Short CBC 11/09/21 Range/Units 01:22 WBC 11.0 H (4.0-10.0) 10^3/uL Hgb 14.7 (11.5-15.3) g/dL Hct 45.7 (37.0-47.0) % MCV 87.2 (81-99) fl Plt Count 158 (130-400) 10^3/cmm Neut % (Auto) 76.2 % Neut # (Auto) 8.38 H (1.8-7.7) 10^3/uL BMP 11/09/21 01:22 Sodium 139 Potassium 3.4 L Chloride 99 Carbon Dioxide 29 BUN 10 Creatinine 0.6 Glucose 222 H Calcium 8.6 Cardiac Enzymes 11/09/21 11/09/21 Range/Units 07:58 07:58 Creatine Kinase 80 (26-192) U/L Troponin T Baseline 11 H (0-10) ng/L NT-Pro-B Natriuret Pep 34 (0-450) pg/mL Liver Function 11/09/21 Range/Units 01:22 Total Bilirubin 0.4 (0.15-1.2) mg/dL AST 26 (0-32) U/L ALT 21 (0-33) U/L Alkaline Phosphatase 147 H (35-105) IU/L Albumin 4.0 (3.5-5.2) g/dL Urine 11/09/21 Range/Units 05:28 Urine Color Yellow (Yellow) Urine Appearance Clear (CLEAR) Urine pH 5 (5-7) Ur Specific [place] 1.020 (1.005-1.030) Urine Protein Neg (Negative) Urine Glucose (UA) 2+ H (Normal) Urine Ketones Negative (Negative) Urine Nitrate Negative (Negative) Urine Bilirubin Neg (Negative) Ur Leukocyte Esterase Negative (Negative) Cardiac Studies: No Data to Display
--- NOTE | 2021-11-09 09:54 | ANES.PROC ---
Anesthesia Procedures Procedure/Date: 11/09/21 Nerve Block ^: Nerve Block 1: Main Anesthesia: general anesthesia Time Out Performed: Yes ([id number]) Consent: requested by attending/covering physician and from patient Nerve block location: femoral (femoral/fascia iliaca ) Anesthesia monitors applied: pulse oximetry, EKG, BP cuff and oxygen Nerve block position: supine Anesthetic Used: bupivacaine 0.5% Amount of anesthesia used (mL): 20 Ultrasound used to: recognize landmarks and visualize and ID femerol nerve Nerve Stimulator Used?: No Interscalene/Femoral BLK: 4 stimuplex 21 g needle used for position and inplane approach Injection: neg aspiration of heme Patient Tolerated Procedure: well and no complications Complications: none Additional Comments: After time out sterile prep, using sterile technique, and using real time US guidance for target selection needle was inserted with real time visualization of needle entry and real time visualization of needle advancement toward intended target. Negative aspiration. LA injected incrementally with negative aspiration every 5 cc and real time US visualization of LA spread throughout procedure. Tolerated well. Image(s) saved. 10 cc injected for fascia iliaca block, 10 cc surrounding femoral nerve.
--- NOTE | 2021-11-09 13:00 | P.OP_ITS ---
Operative Report Date of procedure: November 09, 2021 Pre-op diagnosis: right subtrochanteric femur fracture Post-op diagnosis: same Procedure done: 1. Right intrameduallary nail for subtrochanteric femur fracture Surgeon: Abisai Snell Cut Order Hand: Sam Napier Cut Order Hand: The regional vice president surgical sales, Sam Napeir, CORINNE was needed for his expertise in fracture care. He was important and necessary throughout the procedure to complete in a safe and timely manner. He assisted with patient positioning prepping and draping tissue retraction suctioning of the operative field helping to reduce the fracture and tissue closure Estimated blood loss (mL): 10 Procedure: 1. Right intrameduallary nail for subtrochanteric femur fracture Patient was placed on the fracture table after undergoing anesthesia. All areas impingement well-padded. Traction was applied and fracture was reduced. Patient was then prepped and draped normal sterile fashion. Skin screws made proximal to greater trochanter. The starting pin was inserted. Opening reamer was inserted. Fracture was then held reduced and then the guidewire was passed across the fracture. The canal was reamed and the [place] gamma nail long nail was inserted. AP and lateral fluoroscopy ensured that the nail was in the prone position and the fracture was in good position. Next it was brought to placing the proximal lag screw. The wire was inserted reamer was inserted and a 95 mm lag screw was placed. The locking bolts placed proximally to lock the screw into position. The extensions brought distally to the distal locking screws. The proximal and distal locking screws were drilled and then a 50 and a 60 mm screw was placed into the 2 holes. AP lateral fluoroscopy ensured the nail in fracture probe position wounds were irrigated and closed with Vicryl and kike. Sterile dressings were applied patient was transferred to the PACU in stable addition.
--- NOTE | 2021-11-09 13:56 | ANE.PACU2 ---
Inpatient post-anesthesia follow up: Airway intact: Yes Vital signs: Temperature 97.2 F Pulse Rate 68 Respiratory Rate 18 Blood Pressure 138/68 Pulse Oximetry 98 Oxygen Delivery Me thod Room Air Oxygen Flow Rate 6 Fraction of Inspir ed Oxygen Hydration adequate: Yes Nausea and vomiting: Yes (Mild in nature) Pain level: 7 (Able to sleep) Mental status: Baseline
[2021-11-09] MEDS: ketorolac 30 mg/mL INJ 15 MG IVP (14:41)
[2021-11-09] MEDS: gabapentin 400 mg Capsule PO ×2 (15:34→21:39)
[2021-11-09 17:02] LABS: Glucose Point of Care 271 mg/dL (70-110)
[2021-11-09] MEDS: docusate sodium 100 mg Capsule PO (17:32)
[2021-11-09] MEDS: HYDROcodone-acetaminophen 5-325 mg Tablet PO ×2 (17:32→21:48)
[2021-11-09] MEDS: famotidine 20 mg Tablet PO (17:32)
[2021-11-09] MEDS: insulin lispro 100 unit/1 mL SUBCUT (17:32)
[2021-11-09 20:42] LABS: Glucose Point of Care 246 mg/dL (70-110)
[2021-11-09] MEDS: atorvastatin 40 mg Tablet PO (21:39)
[2021-11-09] MEDS: insulin glargine 100 units/1 mL 10 UNIT SUBCUT (22:25)
[2021-11-10] VITALS (7 sets, daily range): BP systolic 104–130; BP diastolic 54–84; PULSE 79–97; RESP 16–20; TEMP 36.7–37.1; O2SAT 90–96
[2021-11-10] MEDS: enoxaparin 40 mg/0.4 mL Syringe SUBCUT (01:41)
--- NOTE | 2021-11-10 04:20 | PC.NURSE ---
OUTPUT Reported Baxter output of 250ml this shift to pt care nurse
[2021-11-10 06:10] LABS: Basophils # 0.1 10^3/uL (0.0-0.1); Basophils % 0.7 %; Eosinophils # 0.1 10^3/uL (0.0-0.8); Eosinophils % 1.9 %; Hematocrit 33.1 % (37.0-47.0); Hemoglobin 10.2 g/dL (11.5-15.3); Lymphocytes # 1.9 10^3/uL (0.8-4.8); Lymphocytes % 25.9 %; Mean Corpuscular HGB Conc 30.8 g/dL (30.0-36.0); Mean Corpuscular Hemoglobin 27.9 pg (28.0-34.0); Mean Corpuscular Volume 90.7 fl (81-99); Monocytes % 12.8 %; Neutrophils % 58.2 %; Nucleated Red Blood Cells % 0 %; Platelet Count 131 10^3/cmm (130-400); Red Blood Count 3.65 10^6/uL (4.1-5.3); Red Cell Distribution Width 14.9 % (12.1-15.1); White Blood Count 7.4 10^3/uL (4.0-10.0)
[2021-11-10 06:55] LABS: Alanine Aminotransferase 12 U/L (0-33); Albumin Level 2.8 g/dL (3.5-5.2); Alkaline Phosphatase 83 IU/L (35-105); Aspartate Amino Transferase 16 U/L (0-32); Blood Urea Nitrogen 13 mg/dL (8-23); Calcium 8.3 mg/dL (8.5-10.5); Carbon Dioxide 25 mmol/L (22-29); Chloride 103 mmol/L (98-107); Glucose 251 mg/dL (65-115); Magnesium 1.9 mg/dL (1.7-2.3); Osmolality Calculated 297 mOsm/kg (285-295); Phosphorus 2.6 mg/dL (2.5-4.5); Sodium 139 mmol/L (136-145); Total Bilirubin 0.3 mg/dL (0.15-1.2); Total Protein 4.8 g/dL (6.6-8.7)
[2021-11-10] MEDS: dextrose 5%-sod chloride 0.9% 1,000 ML 75 ML IV (07:08)
[2021-11-10 07:20] LABS: Glucose Point of Care 268 mg/dL (70-110)
[2021-11-10] MEDS: HYDROcodone-acetaminophen 5-325 mg Tablet PO ×3 (08:18→21:35)
[2021-11-10] MEDS: famotidine 20 mg Tablet PO ×2 (08:20→15:52)
[2021-11-10] MEDS: hydroCHLOROthiazide 25 mg Tablet PO (08:20)
[2021-11-10] MEDS: metoprolol succinate ER (24 HR) 50 mg Tablet PO (08:20)
[2021-11-10] MEDS: docusate sodium 100 mg Capsule PO ×2 (08:20→15:52)
[2021-11-10] MEDS: gabapentin 400 mg Capsule PO ×3 (08:20→21:35)
[2021-11-10] MEDS: insulin lispro 100 unit/1 mL SUBCUT ×3 (08:21→17:50)
--- NOTE | 2021-11-10 09:51 | PM.PN ---
Subjective Subjective: Interval history: POD 1 Pt up in the chair with right hip pain. Denies any chest pain or shortness of breath. Vitals/I&O/Wt Last Vital Signs Temp 98.5 F 11/10/21 08:43 Pulse 87 11/10/21 08:43 Resp 16 11/10/21 08:43 BP 130/71 11/10/21 08:43 Pulse Ox 93 11/10/21 08:43 11/09/21 11/10/21 11/10/21 22:59 06:59 14:59 Intake Total 978.75 / 1538.75 1360 / 2898.75 Output Total 250 / 275 Balance 978.75 / 1513.75 1110 / 2623.75 Weight last 48 hrs Weight 230 lb Physical Exam Narrative: EXAM NARRATIVE: Patient is alert and orient x3 has good general appearance normal normal affect. Hip incision is clean and dry. Good motor strength throughout both lower extremities. Fires in all motor groups. Skin is clear warm, feet are warm with good cap refill in all digits. Normal sensation to light touch. Calves are supple, no medial thigh tenderness, negative Homans' sign. No palpable edema peripherally. Urinary Catheter Management: Baxter: Cath Placed During This Visit: yes Reason for Continuing Indwelling Catheter: Required Immobilization for Trauma or Surgery or Anesthesia Urinary Catheter Date of Insertion: 11/09/21 Data : 11/10/21 05:51 11/10/21 05:51 A&P Assessment and plan (1) Subtrochanteric fracture of right femur: Physical therapy to the eval and treat partial weightbearing right lower extremity. elementary [employer] social worker consulted to discuss placement options. Status: Acute Attestations Medical Necessity Statement*: defer to medical team Coding Level of Care Code Acute Overhead Distribution Engineer for g Fwd Diagnoses Subtrochanteric fracture of right femur S72.21XA
[2021-11-10 12:32] LABS: Glucose Point of Care 291 mg/dL (70-110)
[2021-11-10] MEDS: insulin glargine 100 units/1 mL 10 UNIT SUBCUT ×2 (12:58→21:36)
[2021-11-10 16:53] LABS: Glucose Point of Care 430 mg/dL (70-110)
[2021-11-10 20:59] LABS: Glucose Point of Care 391 mg/dL (70-110)
[2021-11-10] MEDS: atorvastatin 40 mg Tablet PO (21:35)
--- NOTE | 2021-11-10 22:13 | PM.PN ---
Subjective Subjective: Interval history: Patient was seen this evening after surgery, she did well after surgery, surgical site looks clean and dry, she tells me that after her surgery in the afternoon, she got up in the chair for about 4 hours, however she had significant pain in the right lower extremity, pain with bearing weight, she tells me that she can go home, her family cannot take care of her, she thinks she needs to go to a halfway for increased assistance in rehab, no fevers, no cough, is on room air, Baxter catheter still in place that she has pain with ambulation, has not had a bowel movement yet Vitals/I&O/Wt Last Vital Signs Temp 98.7 F 11/10/21 20:00 Pulse 83 11/10/21 20:00 Resp 17 11/10/21 20:00 BP 125/84 11/10/21 20:00 Pulse Ox 96 11/10/21 20:00 11/10/21 11/10/21 11/10/21 06:59 14:59 22:59 Intake Total 1360 / 2898.75 60 / 60 980 / 1040 Output Total 250 / 275 Balance 1110 / 2623.75 60 / 60 980 / 1040 Weight last 48 hrs Weight 104.326 kg Physical Exam Const: COMMON NORMALS: no acute distress and patient oriented x3 HENMT: COMMON NORMALS: normocephalic HEAD & SCALP: normocephalic Neck/C-Spine: COMMON NORMALS: no JVD Resp: COMMON NORMALS: normal respiratory effort, No retractions, No use of accessory muscles and clear to auscultation bilaterally AUSCULTATION: clear to auscultation bilaterally Cardio: COMMON NORMALS: no JVD, regular rate, regular rhythm, S1 normal heart sound present and S2 normal heart sound present RATE: regular rate RHYTHM: regular rhythm HEART SOUNDS: S1 normal heart sound present and S2 normal heart sound present GI: COMMON NORMALS: Normal to inspection, nondistended, normoactive bowel sounds present, Soft to palpation, non-tender, No hepatosplenomegaly present, no masses and no bruits PALPATION: Yes Soft to palpation and Yes No hepatosplenomegaly present Extremity: COMMON NORMALS: capillary refill normal, no clubbing, cyanosis or edema, no calf tenderness and no pedal edema Neuro: COMMON NORMALS: patient oriented x3 Psych: COMMON NORMALS: mental status grossly normal Skin: NARRATIVE SKIN EXAM: Surgical site looks clean and dry, bandages in place Urinary Catheter Management: Baxter: Cath Placed During This Visit: yes Reason for Continuing Indwelling Catheter: Acute Urinary Retention or Obstruction Urinary Catheter Date of Insertion: 11/09/21 Data : 11/10/21 05:51 11/10/21 05:51 A&P Assessment and plan (1) Subtrochanteric fracture of right femur: Physical therapy to the eval and treat partial weightbearing right lower extremity. social service agency director consulted to discuss placement options. Status: Acute (2) Type 2 diabetes mellitus: Status: Acute Plan Proximal femoral diaphysis obliquely oriented mildly comminuted fracture with overlap of the fracture fragments. -Pain control morphine -PT OT -Dr. Snell will be consulted by ER provider -Status post ?Right intrameduallary nail for subtrochanteric femur fracture -Full code -DVT prophylaxis SCDs, anticoagulation currently on hold and plans for surgery Type 2 diabetes mellitus -Currently on regular diet switch to consistent carb -Hold glargine 60 units twice daily -Moderate dose sliding scale, Lantus 10 units every 12 hours Hyperlipidemia continue pravastatin Hypertension, continue hydrochlorothiazide, metoprolol Attestations Medical Necessity Statement*: Patient requires hospitalization for fracture Coding Level of Care Code Acute Roll Wrapper for Carol Armstrong History Detailed Exam Detailed Medical Decision Making Moderate Complexity Diagnoses Subtrochanteric fracture of right femur S72.21XA Type 2 diabetes mellitus E11.9 Time Spent (min) 25
[2021-11-11] VITALS (7 sets, daily range): BP systolic 98–125; BP diastolic 50–72; PULSE 76–85; RESP 16–18; TEMP 36.7–38.1; O2SAT 93–96
[2021-11-11] MEDS: HYDROcodone-acetaminophen 5-325 mg Tablet PO ×4 (01:54→20:15)
[2021-11-11] MEDS: enoxaparin 40 mg/0.4 mL Syringe SUBCUT (01:54)
[2021-11-11 06:01] LABS: Basophils # 0.1 10^3/uL (0.0-0.1); Basophils % 0.6 %; Eosinophils # 0.2 10^3/uL (0.0-0.8); Eosinophils % 2.3 %; Hematocrit 28.7 % (37.0-47.0); Lymphocytes # 2.2 10^3/uL (0.8-4.8); Mean Corpuscular HGB Conc 31.4 g/dL (30.0-36.0); Mean Corpuscular Hemoglobin 27.2 pg (28.0-34.0); Mean Corpuscular Volume 86.7 fl (81-99); Mean Platelet Volume 11.2 fL (7.4-10.4); Monocytes % 12.8 %; Neutrophils # 4.53 10^3/uL (1.8-7.7); Neutrophils % 56.8 %; Nucleated Red Blood Cells % 0 %; Platelet Count 116 10^3/cmm (130-400); Red Blood Count 3.31 10^6/uL (4.1-5.3); Red Cell Distribution Width 14.6 % (12.1-15.1)
[2021-11-11 06:24] LABS: Alanine Aminotransferase 8 U/L (0-33); Albumin Level 2.6 g/dL (3.5-5.2); Alkaline Phosphatase 91 IU/L (35-105); Anion Gap 12.7 (5-19); Aspartate Amino Transferase 18 U/L (0-32); Blood Urea Nitrogen 12 mg/dL (8-23); Calcium 8.4 mg/dL (8.5-10.5); Carbon Dioxide 25 mmol/L (22-29); Chloride 101 mmol/L (98-107); Globulin 2.1 g/dL (1.3-4.6); Glucose 303 mg/dL (65-115); Magnesium 1.8 mg/dL (1.7-2.3); Osmolality Calculated 291 mOsm/kg (285-295); Phosphorus 2.4 mg/dL (2.5-4.5); Potassium 3.7 mmol/L (3.5-5.1); Sodium 135 mmol/L (136-145); Total Bilirubin 0.3 mg/dL (0.15-1.2); Total Protein 4.7 g/dL (6.6-8.7)
[2021-11-11 06:54] LABS: Glucose Point of Care 329 mg/dL (70-110)
--- NOTE | 2021-11-11 07:22 | XR_ITS ---
WS: [id number] HIP RIGHT TECHNIQUE: 2 views of the right hip CLINICAL INFORMATION: post surgery COMPARISON: None. FINDINGS: Intramedullary kirit and screw fixation right hip. Improved alignment of the proximal diaphyseal fractu re. Intramedullary kirit extends into the distal femur with fixation screws. XR/XR hip RT 1V wo/w pel [id number] IMPRESSION: Postoperative changes intramedullary kriit and screw fixation right hip with impr aaron fracture alignment Tonnis classification:
--- NOTE | 2021-11-11 07:23 | XR_ITS ---
WS: [id number] FEMUR RIGHT TECHNIQUE: 2 views of the right femur CLINICAL INFORMATION: post op COMPARISON: November 09, 2021 FINDINGS: Intramedullary kirit and screw fixation right femur proximal diaphysis fracture. Femoral kirit extends di stally with fixation screws. Right TKA. XR/XR femur RT 1V [id number] IMPRESSION: Satisfactory postoperative intramedullary kirit and screw fixation right femur
[2021-11-11] MEDS: hydroCHLOROthiazide 25 mg Tablet PO (08:20)
[2021-11-11] MEDS: gabapentin 400 mg Capsule PO ×3 (08:20→20:14)
[2021-11-11] MEDS: metoprolol succinate ER (24 HR) 50 mg Tablet PO (08:20)
[2021-11-11] MEDS: docusate sodium 100 mg Capsule PO ×2 (08:20→17:46)
[2021-11-11] MEDS: famotidine 20 mg Tablet PO ×2 (08:20→17:46)
[2021-11-11] MEDS: insulin lispro 100 unit/1 mL SUBCUT ×3 (08:21→17:47)
[2021-11-11] MEDS: insulin glargine 100 units/1 mL 10 UNIT SUBCUT (08:21)
--- NOTE | 2021-11-11 10:37 | P.PN_ITS ---
Subjective Subjective: Interval history: POD 2 Pt resting comfortably. Denies any chest pain shortness of breath. Mild right hip pain. Vitals/I&O/Wt Last Vital Signs Temp 98.8 F 11/11/21 04:00 Pulse 78 11/11/21 06:00 Resp 16 11/11/21 04:00 BP 114/50 11/11/21 04:00 Pulse Ox 94 11/11/21 04:00 11/10/21 11/11/21 11/11/21 22:59 06:59 14:59 Intake Total 980 / 1040 0 / 1040 Output Total 600 / 600 Balance 980 / 1040 -600 / 440 Physical Exam Narrative: EXAM NARRATIVE: Patient is alert and orient x3 has good general appearance normal normal affect. Hip incision is healing nicely. There is no signs of erythema or drainage no signs of infection. Good motor strength throughout both lower extremities. Fires in all motor groups. Skin is clear warm, feet are warm with good cap refill in all digits. Normal sensation to light touch. Calves are supple, no medial thigh tenderness, negative Homans' sign. No palpable edema peripherally. Urinary Catheter Management: Baxter: Cath Placed During This Visit: yes Reason for Continuing Indwelling Catheter: Required Immobilization for Trauma or Surgery or Anesthesia Urinary Catheter Date of Insertion: 11/09/21 Data : 11/11/21 05:16 11/11/21 05:16 A&P Assessment and plan (1) Subtrochanteric fracture of right femur: Status: Acute Plan Physical therapy continue to mobilize. coordinator cardiopulmonary services to help with placement. See her back in the office in 2 weeks for staple removal or can be performed at the facility. Attestations Medical Necessity Statement*: defer to medical team Coding Level of Care Code Acute Contract Assistant for Carol Armstrong Diagnoses Subtrochanteric fracture of right femur S72.21XA
[2021-11-11 12:19] LABS: Glucose Point of Care 366 mg/dL (70-110)
[2021-11-11 12:36] LABS: Glucose Point of Care 318 mg/dL (70-110)
[2021-11-11 17:24] LABS: Glucose Point of Care 395 mg/dL (70-110)
--- NOTE | 2021-11-11 19:07 | PC.NURSE ---
Report to Zulema COTTRELL at this time.
[2021-11-11] MEDS: atorvastatin 40 mg Tablet PO (20:14)
--- NOTE | 2021-11-11 20:52 | PM.PN ---
Subjective Subjective: Interval history: She is having pain in her right leg. Notes swelling. Otherwise denies any trouble breathing, chest pain or pressure, or other concerns. Vitals/I&O/Wt Last Vital Signs Temp 100.6 F H 11/11/21 20:00 Pulse 77 11/11/21 20:00 Resp 17 11/11/21 20:00 BP 98/63 11/11/21 20:00 Pulse Ox 94 11/11/21 20:00 11/11/21 11/11/21 11/11/21 06:59 14:59 22:59 Intake Total 0 / 1040 350 / 350 Output Total 600 / 600 1850 / 1850 Balance -600 / 440 350 / 350 -1850 / -1500 Physical Exam Narrative: EXAM NARRATIVE: In a chair. Const: COMMON NORMALS: no acute distress and patient oriented x3 HENMT: COMMON NORMALS: oropharynx normal Neck/C-Spine: COMMON NORMALS: no JVD Resp: COMMON NORMALS: normal respiratory effort and clear to auscultation bilaterally AUSCULTATION: clear to auscultation bilaterally Cardio: COMMON NORMALS: no JVD, regular rhythm, S1 normal heart sound present, S2 normal heart sound present and No murmurs present (Cardio) RHYTHM: regular rhythm HEART SOUNDS: S1 normal heart sound present and S2 normal heart sound present GI: COMMON NORMALS: Normal to inspection, nondistended, normoactive bowel sounds present, Soft to palpation and non-tender PALPATION: Yes Soft to palpation Extremity: COMMON NORMALS: no joint enlargement GENERAL: Yes edema (Swelling RLE) Neuro: COMMON NORMALS: patient oriented x3 Skin: COMMON NORMALS: no rashes or lesions noted GENERAL SKIN EXAM: no rashes or lesions noted Urinary Catheter Management: Baxter: Cath Placed During This Visit: yes Reason for Continuing Indwelling Catheter: Accurate Measurement of Urinary Output in Critically Ill Patients Urinary Catheter Date of Insertion: 11/09/21 Data : 11/11/21 05:16 11/11/21 05:16 A&P Assessment and plan (1) Subtrochanteric fracture of right femur: Swelling of RLE, will assess with duplex. Appears to also have a low-grade fever currently 100.6 Fahrenheit Will request UA, chest x-ray. Encourage I-S. Physical therapy to the eval and treat partial weightbearing right lower extremity. Arrangements underway for rehabilitation at SNF after discharge. Status: Acute (2) Type 2 diabetes mellitus: Increase Lantus dose to 15 units Continue sliding scale. Consistent carbohydrate diet. Status: Acute Plan Hyperlipidemia continue pravastatin Hypertension, continue hydrochlorothiazide, metoprolol Attestations Medical Necessity Statement*: Continue admission for assessment of management following right hip fracture and repair, fever. Coding Level of Care Code Acute Director Of Grants for [facility] [place] Diagnoses Subtrochanteric fracture of right femur S72.21XA Type 2 diabetes mellitus E11.9
[2021-11-11 20:56] LABS: Glucose Point of Care 306 mg/dL (70-110)
[2021-11-11] MEDS: insulin glargine 100 units/1 mL 15 UNIT SUBCUT (22:02)
[2021-11-12] VITALS (7 sets, daily range): BP systolic 110–130; BP diastolic 62–82; PULSE 80–91; RESP 15–17; TEMP 36.3–37.4; O2SAT 90–97
[2021-11-12] MEDS: HYDROcodone-acetaminophen 5-325 mg Tablet PO ×4 (01:43→20:27)
[2021-11-12] MEDS: enoxaparin 40 mg/0.4 mL Syringe SUBCUT (01:44)
[2021-11-12 04:14] LABS: Add Urine Microscopic? NO; Charge for UA Resulting for Rev
[2021-11-12 04:21] LABS: Bilirubin Urine Neg (Negative); Blood Urine Neg (Negative); Glucose Urine UA 4+ (Normal); Ketones Urine Negative (Negative); Leukocyte Esterase Urine Negative (Negative); Nitrate Urine Negative (Negative); Protein Urine Neg (Negative); Urine Appearance Clear (CLEAR); Urine Color Yellow (Yellow); Urobilinogen Urine Norm (Negative); pH Urine 5 (5-7)
[2021-11-12 05:45] LABS: Basophils % 0.4 %; Eosinophils # 0.2 10^3/uL (0.0-0.8); Eosinophils % 2.2 %; Hematocrit 27.1 % (37.0-47.0); Hemoglobin 8.6 g/dL (11.5-15.3); Lymphocytes # 1.8 10^3/uL (0.8-4.8); Mean Corpuscular HGB Conc 31.7 g/dL (30.0-36.0); Mean Corpuscular Hemoglobin 27.7 pg (28.0-34.0); Mean Corpuscular Volume 87.1 fl (81-99); Mean Platelet Volume 11.6 fL (7.4-10.4); Monocytes % 13.5 %; Neutrophils % 58.3 %; Nucleated Red Blood Cells % 0 %; Platelet Count 125 10^3/cmm (130-400); Red Blood Count 3.11 10^6/uL (4.1-5.3); Red Cell Distribution Width 14.6 % (12.1-15.1); White Blood Count 7.2 10^3/uL (4.0-10.0)
[2021-11-12 06:00] LABS: Alanine Aminotransferase 10 U/L (0-33); Albumin Level 2.7 g/dL (3.5-5.2); Alkaline Phosphatase 89 IU/L (35-105); Anion Gap 9.3 (5-19); Aspartate Amino Transferase 18 U/L (0-32); Blood Urea Nitrogen 10 mg/dL (8-23); Calcium 7.7 mg/dL (8.5-10.5); Carbon Dioxide 30 mmol/L (22-29); Chloride 99 mmol/L (98-107); Globulin 2.3 g/dL (1.3-4.6); Glucose 283 mg/dL (65-115); Magnesium 1.8 mg/dL (1.7-2.3); Osmolality Calculated 289 mOsm/kg (285-295); Phosphorus 2.2 mg/dL (2.5-4.5); Potassium 3.3 mmol/L (3.5-5.1); Sodium 135 mmol/L (136-145); Total Bilirubin 0.4 mg/dL (0.15-1.2)
[2021-11-12 06:54] LABS: Glucose Point of Care 296 mg/dL (70-110)
--- NOTE | 2021-11-12 08:20 | PM.PN ---
Subjective Subjective: Interval history: POD 3 Patient complains of right leg pain. Inability to move without severe sharp pain. Denies any shortness of breath, chest pain. Vitals/I&O/Wt Last Vital Signs Temp 98.3 F 11/12/21 04:00 Pulse 80 11/12/21 06:00 Resp 15 11/12/21 04:00 BP 123/70 11/12/21 04:00 Pulse Ox 94 11/12/21 04:00 11/11/21 11/12/21 11/12/21 22:59 06:59 14:59 Intake Total 120 / 470 Output Total 1850 / 1850 575 / 2425 Balance -1730 / -1380 -575 / -1955 Physical Exam Narrative: EXAM NARRATIVE: Alert and orient x3 has good general appearance. Resting comfortably. Incisions are clean and dry. She is able to dorsiflex and plantarflex her right foot calf is supple. Pulses are palpable. Wiggles all digits. Urinary Catheter Management: Baxter: Cath Placed During This Visit: yes Reason for Continuing Indwelling Catheter: Other Urinary Catheter Date of Insertion: 11/09/21 Data : 11/12/21 04:12 11/12/21 04:12 A&P Assessment and plan (1) Subtrochanteric fracture of right femur: Change her dressing today apply Silverlon to the incisional site. Recommend discontinuing Baxter catheter. Continue to work with physical therapy on mobilizing. Will await protective services social worker for placement. Status: Acute Attestations Medical Necessity Statement*: defer to medical team Coding Level of Care Code Acute Interventional Radiologist for Carol Armstrong Diagnoses Subtrochanteric fracture of right femur S72.21XA
--- NOTE | 2021-11-12 08:50 | PC.SOCIAL ---
IMM Update pg 2 of IMM updated and reviewed w/ patient. Copy provided and Copy placed in chart.
[2021-11-12] MEDS: potassium chloride ER 20 mEq Tablet 40 MEQ PO (09:29)
[2021-11-12] MEDS: gabapentin 400 mg Capsule PO ×3 (09:30→20:28)
[2021-11-12] MEDS: hydroCHLOROthiazide 25 mg Tablet PO (09:30)
[2021-11-12] MEDS: docusate sodium 100 mg Capsule PO ×2 (09:30→18:09)
[2021-11-12] MEDS: famotidine 20 mg Tablet PO ×2 (09:30→18:09)
[2021-11-12] MEDS: insulin lispro 100 unit/1 mL SUBCUT ×3 (09:33→18:09)
[2021-11-12] MEDS: metoprolol succinate ER (24 HR) 50 mg Tablet PO (09:33)
[2021-11-12] MEDS: insulin glargine 100 units/1 mL 15 UNIT SUBCUT ×2 (09:33→20:29)
[2021-11-12 11:16] LABS: Glucose Point of Care 382 mg/dL (70-110)
--- NOTE | 2021-11-12 11:44 | XR_ITS ---
WS: [id number] XR chest 1V portable [id number] REASON FOR EXAM: fever FINDINGS: Compared to the examination of 11/09/2021, the lungs appear better aerated and the central bronchovasc ular markings have a normal appearance at this time. No other interval change in previously described abnormality and no new findings. XR/XR chest 1V portable [id number] IMPRESSION: Lungs appear better aerated and the examination is considered within normal ruiz its with no acute abnormality.
--- NOTE | 2021-11-12 12:08 | PC.NURSE ---
Patient is refusing to have her Baxter Catheter removed at this time. Patient states, I can not get up and down to go to the bathroom and it hurts to much to try and get on and off a bed zhong. I will let them take it out when I can get up.
[2021-11-12 13:35] LABS: Adenovirus Not Detected (NOT DETECT); Chlamydia Pneumoniae Not Detected (NOT DETECT); Coronavirus 229E,HKU1,NL63,OC4 Not Detected (NOT DETECT); Human Metapneumovirus Not Detected (NOT DETECT); Human Rhinovirus/Enterovirus Not Detected (NOT DETECT); Influenza A Not Detected (NOT DETECT); Influenza A H1 Not Detected (NOT DETECT); Influenza A H1-2009 Not Detected (NOT DETECT); Influenza A H3 Not Detected (NOT DETECT); Influenza B Not Detected (NOT DETECT); Mycoplasma Pneumoniae Not Detected (NOT DETECT); Parainfluenza Virus Type 1 Not Detected (NOT DETECT); Parainfluenza Virus Type 2 Not Detected (NOT DETECT); Parainfluenza Virus Type 3 Not Detected (NOT DETECT); Parainfluenza Virus Type 4 Not Detected (NOT DETECT); Respiratory Syncytial Virus A Not Detected (NOT DETECT); Respiratory Syncytial Virus B Not Detected (NOT DETECT); SARS-COV-2 Not Detected (NOT DETECT)
[2021-11-12 17:28] LABS: Glucose Point of Care 336 mg/dL (70-110)
--- NOTE | 2021-11-12 20:22 | P.PN_ITS ---
Subjective Subjective: Interval history: Right leg pain, but no redness, still some swelling, but less so. Discussed with her fever noted last night. She denies additional new symptoms. Denies cough or shortness of breath. Reports has been using incentive spirometer. Encouraged her to continue. Vitals/I&O/Wt Last Vital Signs Temp 98.9 F 11/12/21 16:00 Pulse 84 11/12/21 16:00 Resp 17 11/12/21 16:00 BP 120/78 11/12/21 16:00 Pulse Ox 97 11/12/21 16:00 11/12/21 11/12/21 11/12/21 06:59 14:59 22:59 Intake Total 230 / 230 Output Total 575 / 2425 1999 Balance -575 / -1955 -1770 / -1770 Physical Exam Narrative: EXAM NARRATIVE: In a chair. Const: COMMON NORMALS: no acute distress and patient oriented x3 HENMT: COMMON NORMALS: oropharynx normal Neck/C-Spine: COMMON NORMALS: no JVD Resp: COMMON NORMALS: normal respiratory effort and clear to auscultation bilaterally AUSCULTATION: clear to auscultation bilaterally Cardio: COMMON NORMALS: no JVD, regular rhythm, S1 normal heart sound present, S2 normal heart sound present and No murmurs present (Cardio) RHYTHM: regular rhythm HEART SOUNDS: S1 normal heart sound present and S2 normal heart sound present GI: COMMON NORMALS: Normal to inspection, nondistended, normoactive bowel sounds present, Soft to palpation and non-tender PALPATION: Yes Soft to palpation Extremity: COMMON NORMALS: no joint enlargement GENERAL: Yes edema (Decreasing swelling RLE, no erythema) Neuro: COMMON NORMALS: patient oriented x3 Skin: COMMON NORMALS: no rashes or lesions noted GENERAL SKIN EXAM: no rashes or lesions noted Urinary Catheter Management: Baxter: Cath Placed During This Visit: yes Reason for Continuing Indwelling Catheter: Accurate Measurement of Urinary Output in Critically Ill Patients Urinary Catheter Date of Insertion: 11/09/21 Data : 11/12/21 04:12 11/12/21 04:12 A&P Assessment and plan (1) Fever: Low-grade fever on 11/11 up to 100.6 Fahrenheit Unclear cause. Additional work- up undertaken with UA, chest x-ray. Coronavirus tested by PCR and negative. Chest x-ray with aspiration pneumonia. UA no suggestive UTI. She denies any new symptoms. No DVT noted in the right lower extremity. Extremity appears with decreasing swelling, no erythema or findings suggestive of infection. Discussed with her this time fever nontraffic clear, possibly some atelectasis which now is resolved. Encouraged her to continue use of incentive spirometer. Monitor for further recurrence. Status: Acute (2) Subtrochanteric fracture of right femur: Decreasing. Continue to elevate lower extremities. Duplex negative for DVT. Some decrease in hemoglobin down to 8.6. Recheck. Encourage I-S. Physical therapy to the eval and treat partial weightbearing right lower extremity. Arrangements underway for rehabilitation at SNF after discharge. Status: Acute (3) Type 2 diabetes mellitus: Increase Lantus dose to 20 units Continue sliding scale. Consistent carbohydrate diet. Status: Acute Plan Hypokalemia: Replace Hyperlipidemia continue pravastatin Hypertension, continue hydrochlorothiazide, metoprolol Attestations Medical Necessity Statement*: Continue admission versus management of low- grade fever following right hip fracture repair. Discharge planning and arrangements. Coding Level of Care Code Acute Plasterer Maintenance for Carol Armstrong Diagnoses Subtrochanteric fracture of right femur S72.21XA Type 2 diabetes mellitus E11.9 Fever R50.9
[2021-11-12] MEDS: atorvastatin 40 mg Tablet PO (20:27)
--- NOTE | 2021-11-12 20:52 | USCV_ITS ---
Cheyanne Fung Age: 75 Gender: F : 1945 Exam Date: 11/12/2021 06:34 Ordering Phys: Saurav Kaye MD Technologist: ALONZO Exam Location: [facility] [place] Indication: RLE PAIN AND SWELLING HISTORY: Lower extremity swelling. Lower extremity pain. PROCEDURES: Venous duplex imaging was performed in only the right lower extremity. The following venous structures were evaluated: common femoral vein, profunda vein, proximal portion of the greater saphenous vein, superficial femoral vein, and the popliteal vein. In addition, the posterior tibial and peroneal trunk were evaluated. Serial compression, augmentation maneuvers, and spectral Doppler flow evaluation were performed. FINDINGS: Normal 2-D Doppler and augmentation and compressibility throughout the lower extremity venous structures. Additional imaging through the proximal calf veins also reveals no thrombus. Limited evaluation of the greater saphenous vein is patent with no thrombus. CONCLUSIONS No DVT right lower extremity. Dr. Savanna Champagne DO (Electronically Signed) Final Date: 12 November 2021 07:56 S
[2021-11-12 22:26] LABS: Glucose Point of Care 320 mg/dL (70-110)
[2021-11-13] VITALS: BP 111/64; PULSE 83; RESP 20; TEMP 36.9; O2SAT 93
[2021-11-13] MEDS: enoxaparin 40 mg/0.4 mL Syringe SUBCUT (00:11)
[2021-11-13] MEDS: HYDROcodone-acetaminophen 5-325 mg Tablet PO ×3 (00:16→12:47)
[2021-11-13 04:00] VITALS: BP 105/69; PULSE 77; RESP 17; TEMP 36.9; O2SAT 95
[2021-11-13 06:05] LABS: Basophils % 0.6 %; Eosinophils # 0.2 10^3/uL (0.0-0.8); Eosinophils % 2.3 %; Hematocrit 25.5 % (37.0-47.0); Hemoglobin 8.3 g/dL (11.5-15.3); Lymphocytes # 1.9 10^3/uL (0.8-4.8); Lymphocytes % 29.8 %; Mean Corpuscular HGB Conc 32.5 g/dL (30.0-36.0); Mean Corpuscular Hemoglobin 28.5 pg (28.0-34.0); Mean Corpuscular Volume 87.6 fl (81-99); Mean Platelet Volume 11.7 fL (7.4-10.4); Monocytes # 0.8 10^3/uL (0.2-0.9); Monocytes % 12.9 %; Neutrophils # 3.52 10^3/uL (1.8-7.7); Neutrophils % 53.9 %; Nucleated Red Blood Cells % 0 %; Platelet Count 148 10^3/cmm (130-400); Red Blood Count 2.91 10^6/uL (4.1-5.3); Red Cell Distribution Width 14.7 % (12.1-15.1); White Blood Count 6.5 10^3/uL (4.0-10.0)
[2021-11-13 06:22] LABS: Anion Gap 10.4 (5-19); Blood Urea Nitrogen 11 mg/dL (8-23); Calcium 7.6 mg/dL (8.5-10.5); Carbon Dioxide 32 mmol/L (22-29); Chloride 98 mmol/L (98-107); Glucose 308 mg/dL (65-115); Osmolality Calculated 295 mOsm/kg (285-295); Potassium 3.4 mmol/L (3.5-5.1); Sodium 137 mmol/L (136-145)
[2021-11-13 06:43] LABS: Glucose Point of Care 349 mg/dL (70-110)
[2021-11-13 08:00] VITALS: BP 109/69; PULSE 79; RESP 18; TEMP 36.3; O2SAT 91
[2021-11-13] MEDS: metoprolol succinate ER (24 HR) 50 mg Tablet PO (08:23)
[2021-11-13] MEDS: gabapentin 400 mg Capsule PO ×3 (08:23→20:52)
[2021-11-13] MEDS: docusate sodium 100 mg Capsule PO ×2 (08:23→16:49)
[2021-11-13] MEDS: hydroCHLOROthiazide 25 mg Tablet PO (08:23)
[2021-11-13] MEDS: famotidine 20 mg Tablet PO ×2 (08:23→16:49)
[2021-11-13] MEDS: insulin lispro 100 unit/1 mL SUBCUT ×3 (08:29→16:59)
[2021-11-13] MEDS: insulin glargine 100 units/1 mL 20 UNIT SUBCUT (08:30)
[2021-11-13 11:25] LABS: Glucose Point of Care 347 mg/dL (70-110)
[2021-11-13 11:48] VITALS: BP 107/67; PULSE 73; RESP 18; TEMP 36.6; O2SAT 94
[2021-11-13] MEDS: potassium chloride ER 20 mEq Tablet 40 MEQ PO (12:10)
[2021-11-13 15:33] VITALS: BP 111/68; PULSE 73; RESP 18; TEMP 36.4; O2SAT 94
[2021-11-13] MEDS: HYDROcodone-acetaminophen 10-325 mg Tablet PO ×2 (16:48→20:52)
[2021-11-13 17:32] LABS: Glucose Point of Care 401 mg/dL (70-110)
[2021-11-13 20:00] VITALS: BP 105/61; BP 114/64; PULSE 71; PULSE 73; RESP 17; RESP 18; TEMP 36.6; O2SAT 97
--- NOTE | 2021-11-13 20:26 | PM.PN ---
Subjective Subjective: Interval history: She is doing a bit better. Still swelling in her right leg, but pain is gradually improving. Denies chest pain or pressure, no trouble breathing. Vitals/I&O/Wt Last Vital Signs Temp 97.5 F L 11/13/21 15:33 Pulse 73 11/13/21 15:33 Resp 18 11/13/21 15:33 BP 111/68 11/13/21 15:33 Pulse Ox 94 11/13/21 15:33 11/13/21 11/13/21 11/13/21 06:59 14:59 22:59 Intake Total 200 / 630 240 / 240 Output Total 1200 / 3200 Balance -1000 / -2570 240 / 240 Physical Exam Narrative: EXAM NARRATIVE: In a chair. Const: COMMON NORMALS: no acute distress and patient oriented x3 HENMT: COMMON NORMALS: oropharynx normal Neck/C-Spine: COMMON NORMALS: no JVD Resp: COMMON NORMALS: normal respiratory effort and clear to auscultation bilaterally AUSCULTATION: clear to auscultation bilaterally Cardio: COMMON NORMALS: no JVD, regular rhythm, S1 normal heart sound present, S2 normal heart sound present and No murmurs present (Cardio) RHYTHM: regular rhythm HEART SOUNDS: S1 normal heart sound present and S2 normal heart sound present GI: COMMON NORMALS: Normal to inspection, nondistended, normoactive bowel sounds present, Soft to palpation and non-tender PALPATION: Yes Soft to palpation Extremity: COMMON NORMALS: no joint enlargement GENERAL: Yes edema (Decreasing swelling RLE, no erythema) Neuro: COMMON NORMALS: patient oriented x3 Skin: COMMON NORMALS: no rashes or lesions noted GENERAL SKIN EXAM: no rashes or lesions noted Urinary Catheter Management: Baxter: Cath Placed During This Visit: yes Reason for Continuing Indwelling Catheter: Acute Urinary Retention or Obstruction Urinary Catheter Date of Insertion: 11/09/21 Data : 11/13/21 04:30 11/13/21 04:30 A&P Assessment and plan (1) Fever: So far without recurrence of fever. Possibly secondary to atelectasis. She continues to use incentive spirometer well. Low-grade fever on 11/11 up to 100.6 Fahrenheit. Coronavirus tested by PCR and negative. Chest x-ray without appearance of pneumonia. UA no suggestive UTI. She denies any new symptoms. No DVT noted in the right lower extremity. Extremity appears with decreasing swelling, no erythema or findings suggestive of infection. Status: Acute (2) Subtrochanteric fracture of right femur: Mildly improving pain. Still some swelling, slow to improve. KELLY Baxter. Mobilize. Continue to elevate lower extremities. Duplex negative for DVT. Some decrease in hemoglobin down to 8.3. Recheck. Encourage I-S. Physical therapy to the eval and treat partial weightbearing right lower extremity. Arrangements underway for rehabilitation at SNF after discharge. Status: Acute (3) Type 2 diabetes mellitus: Increase Lantus dose to 40 units Continue sliding scale. Consistent carbohydrate diet. Status: Acute Plan Hypokalemia: Replace Hyperlipidemia continue pravastatin Hypertension, continue hydrochlorothiazide, metoprolol Attestations Medical Necessity Statement*: Continue admission for assessment of management after right hip fracture and repair, with stay complicated by fever, acute anemia, continue disposition arrangements. Coding Level of Care Code Acute Optical Lab Technician for Carol Armstrong Diagnoses Fever R50.9 Subtrochanteric fracture of right femur S72.21XA Type 2 diabetes mellitus E11.9
[2021-11-13] MEDS: atorvastatin 40 mg Tablet PO (20:52)
[2021-11-13] MEDS: insulin glargine 100 units/1 mL 40 UNIT SUBCUT (20:53)
[2021-11-13 21:33] LABS: Glucose Point of Care 347 mg/dL (70-110)
[2021-11-14] VITALS: BP 114/64; PULSE 71; RESP 17; TEMP 36.6; O2SAT 90
[2021-11-14] MEDS: enoxaparin 40 mg/0.4 mL Syringe SUBCUT (01:30)
--- NOTE | 2021-11-14 01:50 | PC.NURSE ---
Patient has no telemetry on and not monitored since 11/12/21. Will not be able to do cardiac monitoring in computer.
[2021-11-14 04:00] VITALS: BP 101/59; PULSE 81; RESP 18; TEMP 36.6; O2SAT 97
--- NOTE | 2021-11-14 05:10 | PC.NURSE ---
Frequent safety and comfort rounds continue. Orders and/or nursing care completed as indicated. Patient monitored for response to intervention and treatment(s). Education provided includes pain management strategies. Patient and/or apprenticeship training representative verbalizes understanding. Will continue to monitor.
[2021-11-14 05:50] LABS: Basophils % 0.5 %; Eosinophils # 0.2 10^3/uL (0.0-0.8); Eosinophils % 3.3 %; Hematocrit 27.1 % (37.0-47.0); Hemoglobin 8.7 g/dL (11.5-15.3); Lymphocytes # 1.3 10^3/uL (0.8-4.8); Lymphocytes % 19.9 %; Mean Corpuscular HGB Conc 32.1 g/dL (30.0-36.0); Mean Corpuscular Hemoglobin 28.3 pg (28.0-34.0); Mean Corpuscular Volume 88.3 fl (81-99); Mean Platelet Volume 11.3 fL (7.4-10.4); Monocytes # 0.8 10^3/uL (0.2-0.9); Monocytes % 12.1 %; Neutrophils # 4.22 10^3/uL (1.8-7.7); Neutrophils % 63.7 %; Nucleated Red Blood Cells % 0 %; Platelet Count 141 10^3/cmm (130-400); Red Blood Count 3.07 10^6/uL (4.1-5.3); Red Cell Distribution Width 14.6 % (12.1-15.1); White Blood Count 6.6 10^3/uL (4.0-10.0)
[2021-11-14 06:11] LABS: Anion Gap 11.5 (5-19); Blood Urea Nitrogen 11 mg/dL (8-23); Calcium 7.5 mg/dL (8.5-10.5); Carbon Dioxide 30 mmol/L (22-29); Chloride 99 mmol/L (98-107); Creatinine Clr Calc Pharmacy 74.1881; Glucose 240 mg/dL (65-115); Osmolality Calculated 291 mOsm/kg (285-295); Potassium 3.5 mmol/L (3.5-5.1); Sodium 137 mmol/L (136-145)
[2021-11-14] MEDS: HYDROcodone-acetaminophen 10-325 mg Tablet PO (06:16)
[2021-11-14 06:19] LABS: Glucose Point of Care 252 mg/dL (70-110)
[2021-11-14 07:41] VITALS: BP 135/70; PULSE 79; RESP 17; TEMP 37.2; O2SAT 96
[2021-11-14] MEDS: metoprolol succinate ER (24 HR) 50 mg Tablet PO (08:24)
[2021-11-14] MEDS: gabapentin 400 mg Capsule PO ×3 (08:24→20:25)
[2021-11-14] MEDS: famotidine 20 mg Tablet PO ×2 (08:24→17:46)
[2021-11-14] MEDS: docusate sodium 100 mg Capsule PO ×2 (08:24→17:46)
[2021-11-14] MEDS: hydroCHLOROthiazide 25 mg Tablet PO (08:24)
[2021-11-14] MEDS: insulin lispro 100 unit/1 mL SUBCUT ×3 (08:38→17:50)
[2021-11-14] MEDS: insulin glargine 100 units/1 mL 40 UNIT SUBCUT ×2 (08:43→20:26)
[2021-11-14] MEDS: HYDROcodone-acetaminophen 5-325 mg Tablet 2 TAB PO ×4 (10:20→21:58)
[2021-11-14 11:13] VITALS: BP 139/72; PULSE 77; RESP 17; TEMP 37.2; O2SAT 94
[2021-11-14 12:00] LABS: Glucose Point of Care 323 mg/dL (70-110)
--- NOTE | 2021-11-14 12:56 | PC.SOCIAL ---
IMM Update pg 2 of IMM Updated and reviewed w/ patient. Copy provided and copy in chart updated.
[2021-11-14 16:00] VITALS: BP 134/73; PULSE 75; RESP 15; TEMP 37; O2SAT 96
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
[2021-11-14 17:40] LABS: Glucose Point of Care 291 mg/dL (70-110)
[2021-11-14 20:00] VITALS: BP 103/62; PULSE 85; RESP 16; TEMP 36.7; O2SAT 94
[2021-11-14] MEDS: atorvastatin 40 mg Tablet PO (20:26)
[2021-11-14 21:27] LABS: Glucose Point of Care 228 mg/dL (70-110)
[2021-11-15] VITALS: BP 103/62; PULSE 74; RESP 16; TEMP 36.7; O2SAT 97
[2021-11-15] MEDS: enoxaparin 40 mg/0.4 mL Syringe SUBCUT (00:52)
[2021-11-15 04:00] VITALS: BP 116/73; PULSE 73; RESP 16; RESP 17; TEMP 36.6; O2SAT 94
[2021-11-15 06:49] LABS: Glucose Point of Care 141 mg/dL (70-110)
[2021-11-15 06:57] LABS: Basophils % 0.5 %; Eosinophils # 0.2 10^3/uL (0.0-0.8); Eosinophils % 3.2 %; Hematocrit 28.1 % (37.0-47.0); Hemoglobin 8.8 g/dL (11.5-15.3); Lymphocytes % 30.2 %; Mean Corpuscular HGB Conc 31.3 g/dL (30.0-36.0); Mean Corpuscular Hemoglobin 27.9 pg (28.0-34.0); Mean Corpuscular Volume 89.2 fl (81-99); Mean Platelet Volume 11.5 fL (7.4-10.4); Monocytes # 0.8 10^3/uL (0.2-0.9); Monocytes % 11.5 %; Neutrophils # 3.51 10^3/uL (1.8-7.7); Nucleated Red Blood Cells % 0 %; Platelet Count 180 10^3/cmm (130-400); Red Blood Count 3.15 10^6/uL (4.1-5.3); Red Cell Distribution Width 15.2 % (12.1-15.1); White Blood Count 6.5 10^3/uL (4.0-10.0)
[2021-11-15 07:16] LABS: Anion Gap 16.4 (5-19); Blood Urea Nitrogen 10 mg/dL (8-23); Calcium 8.2 mg/dL (8.5-10.5); Carbon Dioxide 25 mmol/L (22-29); Chloride 101 mmol/L (98-107); Glucose 128 mg/dL (65-115); Osmolality Calculated 289 mOsm/kg (285-295); Potassium 3.4 mmol/L (3.5-5.1); Sodium 139 mmol/L (136-145)
[2021-11-15 08:00] VITALS: BP 131/66; PULSE 88; RESP 17; TEMP 37.4; O2SAT 94
[2021-11-15] MEDS: HYDROcodone-acetaminophen 5-325 mg Tablet 2 TAB PO ×3 (08:37→20:35)
[2021-11-15] MEDS: docusate sodium 100 mg Capsule PO ×2 (08:38→17:04)
[2021-11-15] MEDS: insulin lispro 100 unit/1 mL SUBCUT ×2 (08:38→13:33)
[2021-11-15] MEDS: hydroCHLOROthiazide 25 mg Tablet PO (08:38)
[2021-11-15] MEDS: gabapentin 400 mg Capsule PO ×3 (08:38→20:35)
[2021-11-15] MEDS: famotidine 20 mg Tablet PO ×2 (08:38→17:04)
[2021-11-15] MEDS: metoprolol succinate ER (24 HR) 50 mg Tablet PO (08:38)
[2021-11-15 12:00] VITALS: BP 124/76; PULSE 69; RESP 17; TEMP 36.8; O2SAT 94
[2021-11-15 12:20] LABS: Glucose Point of Care 156 mg/dL (70-110)
--- NOTE | 2021-11-15 16:04 | PM.DCS ---
Discharge Providers Date of Admission: 11/09/21 14:33 Date of Discharge: November 15, 2021 Attending Provider at Admission: Abisai Snell DO Attending Provider at Discharge: Saurav Kaye Primary Care Provider: Judith Leon NP Diagnoses at Discharge Discharge Diagnosis (1) Fever: Status: Acute (2) Subtrochanteric fracture of right femur: Status: Acute (3) Type 2 diabetes mellitus: Status: Acute Reason for Visit Reason for Visit: LEG INJURY Hospital Course Hospital Course Pleasant 75-year-old lady who suffered a fall in the evening of 11/08, with injury to right hip and leg, with finding of right femoral fracture on presentation, was seen by orthopedics, underwent ORIF with intramedullary nail on 11/09, subsequently assessed by physical and Occupational Therapy, with some not unexpected swelling, with pain in the leg, initially had some difficulties with transferring to commode, declined removal of urinary catheter, until transferring a bit better with catheter removed today. Otherwise did well postoperatively with noted mild decrease in hemoglobin which now stabilized from 8.7-8.8 last 2 days. Underwent additional assessment with chest x-ray, UA, coronavirus PCR due to low-grade fever 100.6 on 11/11. Was encouraged to continue working with incentive spirometry, UA, chest x-ray not suggestive of acute infection. PCR COVID-19 negative. Fever without recurrence since 11/11. She is otherwise doing well, has been mobilizing well with physical therapy and encouragement. Would benefit from continued rehabilitation prior to return home, where she is transitioning to today. Physical Exam Urinary Catheter Management: Baxter: Cath Placed During This Visit: yes, but has since been removed by the nurse Reason for Continuing Indwelling Catheter: Decision to DC Catheter Urinary Catheter Date of Insertion: 11/09/21 Date Urinary Catheter Removed: 11/15/21 Time Urinary Catheter Discontinued: 10:30 Discharge Data Studies Completed and Pending Completed Studies During Hospitalization Category Date Time Status CXRP [XR chest 1V portable [id number]] Routine Exams 11/12/21 11:44 Completed XR chest 1V portable [id number] Routine Exams 11/09/21 04:32 Completed XR femur RT 1V [id number] Routine Exams 11/09/21 Completed XR femur RT 1V [id number] Routine Exams 11/11/21 07:23 Completed XR femur RT min 2V* [id number] Stat Exams 11/09/21 00:51 Completed XR hip RT 1V wo/w pel [id number] Routine Exams 11/11/21 07:22 Completed XR pelvis 1-2V* [id number] Stat Exams 11/09/21 00:45 [place] [id number] Routine Ultrasound 11/12/21 20:52 Completed Radiology Impressions Pelvis X-Ray 11/09/21 00:45 IMPRESSION: 1. Negative for fracture or dislocation. 2. [id number] osteoarthritis of the hips bilaterally. 3. Lumbar spine surgical hardware. ADDENDUM: 11/09/21 0159 Same-day right femoral film demonstrates a proximal right femoral fracture, not well appreciated on this exam, please refer to same-day right femoral radiographs. Hip X-Ray 11/11/21 07:22 IMPRESSION: Postoperative changes intramedullary kirit and screw fixation right hip with improved fracture alignment Tonnis classification: Femur X-Ray 11/11/21 07:23 IMPRESSION: Satisfactory postoperative intramedullary kirit and screw fixation right femur Chest X-Ray 11/12/21 11:44 IMPRESSION: Lungs appear better aerated and the examination is considered within normal limits with no acute abnormality. Laboratory Results WBC 6.5 10^3/uL (4.0-10.0) 11/15/21 06:12 RBC 3.15 10^6/uL (4.1-5.3) L 11/15/21 06:12 Hgb 8.8 g/dL (11.5-15.3) L 11/15/21 06:12 Hct 28.1 % (37.0-47.0) L 11/15/21 06:12 MCV 89.2 fl (81-99) 11/15/21 06:12 MCH 27.9 pg (28.0-34.0) L 11/15/21 06:12 MCHC 31.3 g/dL (30.0-36.0) 11/15/21 06:12 RDW 15.2 % (12.1-15.1) H 11/15/21 06:12 Plt Count 180 10^3/cmm (130-400) 11/15/21 06:12 MPV 11.5 fL (7.4-10.4) H 11/15/21 06:12 Neut % (Auto) 54.0 % 11/15/21 06:12 Lymph % (Auto) 30.2 % 11/15/21 06:12 Wise % (Auto) 11.5 % 11/15/21 06:12 Eos % (Auto) 3.2 % 11/15/21 06:12 Baso % (Auto) 0.5 % 11/15/21 06:12 Neut # (Auto) 3.51 10^3/uL (1.8-7.7) 11/15/21 06:12 Lymph # (Auto) 2.0 10^3/uL (0.8-4.8) 11/15/21 06:12 Wise # (Auto) 0.8 10^3/uL (0.2-0.9) 11/15/21 06:12 Eos # (Auto) 0.2 10^3/uL (0.0-0.8) 11/15/21 06:12 Baso # (Auto) 0.0 10^3/uL (0.0-0.1) 11/15/21 06:12 Nucleated RBC % (auto) 0 % 11/15/21 06:12 Nucleated RBCs # 0.0 /100WBC 11/15/21 06:12 Sodium 139 mmol/L (136-145) 11/15/21 06:12 Potassium 3.4 mmol/L (3.5-5.1) L 11/15/21 06:12 Chloride 101 mmol/L (98-107) 11/15/21 06:12 Carbon Dioxide 25 mmol/L (22-29) 11/15/21 06:12 Anion Gap 16.4 (5-19) 11/15/21 06:12 BUN 10 mg/dL (8-23) 11/15/21 06:12 Creatinine 0.4 mg/dL (0.5-0.9) L 11/15/21 06:12 GFR Calculation Not Reportable 11/15/21 06:12 Glucose 128 mg/dL (65-115) H 11/15/21 06:12 POC Glucose 156 mg/dL (70-110) H 11/15/21 11:29 Estimat Average Glucose 235 11/09/21 07:58 Hemoglobin A1c 9.8 % (4.0-6.0) H 11/09/21 07:58 Calculated Osmolality 289 mOsm/kg (285-295) 11/15/21 06:12 Calcium 8.2 mg/dL (8.5-10.5) L 11/15/21 06:12 Phosphorus 2.2 mg/dL (2.5-4.5) L 11/12/21 04:12 Magnesium 1.8 mg/dL (1.7-2.3) 11/12/21 04:12 Total Bilirubin 0.4 mg/dL (0.15-1.2) 11/12/21 04:12 AST 18 U/L (0-32) 11/12/21 04:12 ALT 10 U/L (0-33) 11/12/21 04:12 Alkaline Phosphatase 89 IU/L (35-105) 11/12/21 04:12 Creatine Kinase 80 U/L (26-192) 11/09/21 07:58 Troponin T Baseline 11 ng/L (0-10) H 11/09/21 07:58 NT-Pro-B Natriuret Pep 34 pg/mL (0-450) 11/09/21 07:58 Total Protein 5.0 g/dL (6.6-8.7) L 11/12/21 04:12 Albumin 2.7 g/dL (3.5-5.2) L 11/12/21 04:12 Globulin 2.3 g/dL (1.3-4.6) 11/12/21 04:12 TSH 1.70 uIU/mL (0.27-4.20) 11/09/21 07:58 Urine Color Yellow (Yellow) 11/12/21 04:00 Urine Appearance Clear (CLEAR) 11/12/21 04:00 Urine pH 5 (5-7) 11/12/21 04:00 Ur Specific [place] 1.010 (1.005-1.030) 11/12/21 04:00 Urine Protein Neg (Negative) 11/12/21 04:00 Urine Glucose (UA) 4+ (Normal) H 11/12/21 04:00 Urine Ketones Negative (Negative) 11/12/21 04:00 Urine Blood Neg (Negative) 11/12/21 04:00 Urine Nitrate Negative (Negative) 11/12/21 04:00 Urine Bilirubin Neg (Negative) 11/12/21 04:00 Urine Urobilinogen Norm mg/dL (Negative) 11/12/21 04:00 Ur Leukocyte Esterase Negative (Negative) 11/12/21 04:00 Coronavirus 229E (PCR) Not detected (NOT DETECT) 11/12/21 07:00 SARS-CoV-2 (PCR) Not detected (NOT DETECT) 11/12/21 07:00 Vitals Last Vital Signs Temp 98.2 F 11/15/21 12:00 Pulse 69 11/15/21 12:00 Resp 17 11/15/21 12:00 BP 124/76 11/15/21 12:00 Pulse Ox 94 11/15/21 12:00 Discharge Plan Discharge Patient Disposition: Xfer SNF Condition: Stable Prescriptions: New acetaminophen 325 mg Tablet 650 mg PO Q6H PRN (Reason: Mild/Mod Pain Or Temp >/= 101) Qty: 90 0RF hydrocodone-acetaminophen 5-325 mg Tablet 1 tab PO Q8H PRN (Reason: Moderate To Severe Pain) Qty: 9 0RF docusate sodium 100 mg Capsule 100 mg PO BID Qty: 60 0RF Continued gabapentin 400 mg capsule 400 mg PO TID 0RF metoprolol succinate 50 mg tablet extended release 24 hr 50 mg PO DAILY 0RF potassium chloride 10 mEq tablet extended release 20 meq PO DAILY 0RF pravastatin 80 mg tablet 80 mg PO DAILY 0RF tizanidine 2 mg capsule 2 mg PO DAILY PRN (Reason: Muscle Pain) 0RF insulin aspart U-100 [Novolog U-100 Insulin aspart] 100 unit/mL solution 1 sliding scale dose SUBCUT QID 0RF Changed Lantus U-100 Insulin 100 unit/mL solution 40 unit SUBCUT BID Qty: 0 0RF Held hydrochlorothiazide 25 mg tablet 25 mg PO DAILY 0RF Hold Instructions: Resume on 11/21/21. Discharge Orders: Discharge Order (Routine); Ordered 11/15/21 Ordered By: Saurav Kaye Referrals: Chano Luna [Other] Primary, provider [Other] - 4-7 days Judith Leon NP [Primary Care Provider] - Discharge Diet: Cardiac and Diabetic Discharge Activity: As per PT/OT instructions Patient Instructions: Opioid Safety, Leg Fracture (GEN), ORIF of a Leg Fracture (GEN) Activity Restrictions/Additional Instructions: Continue incentive spirometer. You are being discharged from the hospital today during which time you have been under the care of []. You had a [right hip] fracture. You were treated for this injury with [IM kirit. You may resume you normal diet (including any special diets as directed by your primary doctor) as well as your home medications. You should follow up with you primary doctor if you have any questions regarding medication you took prior to your stay in the hospital. You may take your pain medication as prescribed. After the first few days, take your pain medication as needed. Do not drive or drink alcohol while taking your pain medication. Your injury may increase your risk of developing a blood clot,or DVT, in your arm or leg. This could potentially dislodge and travel to your lungs and become a life threatening condition called apulmonary embolus,or PE. Frequent movement of the [Right lower extremity] will also help prevent this from occurring. If you develop any new or worsening cough, chestpain, bloody sputum or shortness of breath, call 911 or go to the EmergencyRoom. Always keep your surgical incision/dressing clean and dry. If you experience increasing pain at your incision site, redness, swelling, increasing discharge, foul odors, or fevers (greater than 100.4), night sweats or chills you should call the office at the above number. If you feel this is an emergency you should be evaluated in the Emergency Department of a nearby hospital. Orthopedic Patient Instructions Summary: Weight Bearing: [Partial weightbearing right lower extremity Activity: []. Diet: []. Splint Care: Keep splint clean and dry. Cover with a plastic bag for bathing. Wound Care: Keep dressing clean and dry. Anticoagulation: [Per the hospitalist team Pain Medication: Take only as needed. Ice, rest and elevation will be of great benefit. Please plan to follow-up [facility] [[facility]] in [2] weeks. You will need to call the clinic [phone] to schedule this visit. Thank you far allowing me to participate in your care. Do not hesitate to call the office with any questions or concerns. Discharge Attestations Time Spent in Discharge Care*: greater than 30 min Quality Metrics Clinical Quality Measures [ No reported AMI, CVA or VTE this stay] Coding Level of Care Code Acute Chg FW DC note Diagnoses Fever R50.9 Subtrochanteric fracture of right femur S72.21XA Type 2 diabetes mellitus E11.9
[2021-11-15 17:37] VITALS: BP 124/76; PULSE 69; RESP 17; TEMP 36.8; O2SAT 94
--- NOTE | 2021-11-15 17:38 | PC.NURSE ---
Discharge Note Patient discharged to [facility] via ambulance ride accompanied by ambulance personel. Discharge instructions reviewed with patient and/or safety representative. Mobile pharmacy medications and/or prescriptions provided. Belongings/home medications returned.
[2021-11-15 18:02] LABS: Glucose Point of Care 204 mg/dL (70-110)
[2021-11-15 20:00] VITALS: BP 104/54; PULSE 72; RESP 16; RESP 18; TEMP 36.7; O2SAT 94
[2021-11-15] MEDS: atorvastatin 40 mg Tablet PO (20:35)
[2021-11-15] MEDS: insulin glargine 100 units/1 mL 40 UNIT SUBCUT (20:36)
[2021-11-15 21:39] LABS: Glucose Point of Care 291 mg/dL (70-110)
--- NOTE | 2021-11-15 22:29 | PC.NURSE ---
[facility] Paramedics here to [facility] patient for transport.
== END 2021-11-15 10:45 | disposition skilled nursing facility (03) | DRG 482 ==
LOC: ER 02:41 → ER IP 02:48 → OR 08:06 → MEDSURG 14:33
PROVIDERS: Emergency Medicine; Family Medicine; Admitting Provider Orthopaedic Surgery; Emergency Provider Nurse Practitioner Family; PCP Nurse Practitioner Family; Visit Provider Internal Medicine
PROC: 0QS606Z Reposition Right Upper Femur with Intramedullary Internal Fixation Device, Open Approach (ICD-10-PCS; principal; 2021-11-09 09:30)
DX: S72.21XA Displaced subtrochanteric fracture of right femur, initial encounter for closed fracture (principal); W01.0XXA Fall on same level from slipping, tripping and stumbling without subsequent striking against object, initial encounter; E11.42 Type 2 diabetes mellitus with diabetic polyneuropathy; I10 Essential (primary) hypertension; Z85.41 Personal history of malignant neoplasm of cervix uteri; Z85.820 Personal history of malignant melanoma of skin; Z87.891 Personal history of nicotine dependence; Z96.653 Presence of artificial knee joint, bilateral; E78.5 Hyperlipidemia, unspecified; E87.6 Hypokalemia; D64.9 Anemia, unspecified; R50.9 Fever, unspecified; Z79.4 Long term (current) use of insulin
CPT/HCPCS: 36415; 36416; 51702; 64447; 71045; 72170; 73501; 73551; 73552; 76000; 76942; 80048; 80053; 81003; 82550; 82962; 83036; 83735; 83880; 84100; 84443; 84484; 85025; 87635; 93005; 93971; 94664; 96361; 96372; 96374; 96375; 97110; 97116; 97162; 97165; 97530; 97535; 99285; C1713; J0690; J1650; J1815 ×2; J1885; J2270; J2360; J2370; J2405; J2704; J3010; J3475; J3490

== ENCOUNTER → 2021-12-12 11:00 | Outpatient (BNVA) | payer MEDICARE, MEDICAID, SELFPAY | PROVIDERS: PCP Nurse Practitioner Family; Visit Provider Orthopaedic Surgery | DX: Z98.890 Other specified postprocedural states (principal) | CPT/HCPCS: 73552 ==

== ENCOUNTER → 2022-01-30 10:12 | Outpatient (BNVA) | payer MEDICARE, MEDICAID, SELFPAY | PROVIDERS: PCP Nurse Practitioner Family; Visit Provider Physician Assistant | DX: X58.XXXD Exposure to other specified factors, subsequent encounter (principal); M25.561 Pain in right knee; S72.21XD Displaced subtrochanteric fracture of right femur, subsequent encounter for closed fracture with routine healing; Z96.653 Presence of artificial knee joint, bilateral | CPT/HCPCS: 73552; 99024; 99999 ==

== ENCOUNTER 2023-06-06 06:16 | Outpatient (CLI) | payer MEDICARE, MEDICAID, SELFPAY ==
--- NOTE | 2023-06-06 | PETR_ITS ---
PROCEDURE INFORMATION: Exam: PET/CT Skull Base to Mid-thigh Exam date and time: 06/06/2023 11:20 AM Age: 77 years old Clinical indication: Condition or disease; Primary cancer: Cervical cancer; Follow-up oncological assessment. Additional previously provided history of malignant melanoma. LABS AND CLINICAL REPORTS: Glucose: 87 mg/dl Treatment strategy for malignancy (PET staging): Restaging (PS) TECHNIQUE: Imaging protocol: Following at least four-hour fasting and following the injection of radiopharmaceutical, low dose CT images were obtained. Then, PET images were obtained. Attenuation corrected images were constructed using the CT scan. Fused images of PET and CT were reviewed. The standardized uptake values (SUV) reported below are maximum values within a region of interest, expressed in gm/ml. Exam includes orbital meatal line to mid-thigh. Radiopharmaceutical: 16.78 mCi F-18 FDG (Fluorodeoxyglucose), IV. Time of imaging post radiopharmaceutical administration: 1 hour Injection site: Left hand COMPARISON: CT abdomen 06/28/2019 PT PET Scan 06/11/2019 11:04 AM FINDINGS: Brain: Visualized brain has normal physiologic uptake. Pharynx: No abnormal uptake. Larynx: No abnormal uptake. Thyroid: A non radiotracer avid ovoid low-density nodule rising from the posterior aspect of the right thyroid lobe measures 2.1 x 1.6 cm on series 3, image 28 compatible with a benign finding. Lungs, pleura and trachea: No abnormal uptake. A right lower lobe calcified granuloma is noted. No definite additional pulmonary nodules with limitations of respiratory motion artifact. Heart: Normal physiologic uptake. Mediastinal space: No abnormal uptake. Liver: No abnormal uptake. A non radiotracer avid rounded lesion in the right liver lobe measures 2.6 cm in diameter on series 3, image 70 (previous SUV max 5.3 on the PET-CT from 06/11/2019). There are new markedly hyperdense component along the anterior aspect of the lesion. In this region in previously noted 2.5 x 3.0 cm lesion was present with low-density in soft tissue density components on the prior CT of 06/28/2019.A non radiotracer avid region of subcapsular low-density in the anterior left liver lobe measuring approximately 1.2 cm in diameter on series 3, image 60 is present which appears decreased in size, previously measuring approximately 1.8 cm in diameter on the CT from 06/28/2019. This region was not hypermetabolic on the prior PET-CT. Gallbladder and bile ducts: No abnormal uptake. Pancreas: No abnormal uptake. Spleen: No abnormal uptake. Adrenal glands: No abnormal uptake. Kidneys and ureters: Normal physiologic uptake. Stomach and bowel: No abnormal uptake. Reproductive: The uterus is not identified, likely surgically absent. No abnormal uptake. Vasculature: No abnormal uptake. There are diffuse atherosclerotic changes. Lymph nodes: No abnormal uptake. No lymphadenopathy in the head, neck, chest, abdomen, pelvis, and extremities. Bones/joints: A healed fracture of the proximal right femoral shaft is noted. An intramedullary kirit in the right femoral shaft is noted with a fixation screw traversing the femoral neck. Degenerative changes in the spine are present with posterior metallic fusion in the lumbar spine. There are healed posterior left 4th through 8th rib fractures. No acute fracture is identified. Bilateral, right greater than left glenohumeral joint primary osteoarthritic changes are noted. Soft tissues: No abnormal uptake in the visualized head, neck, chest, abdomen, pelvis, and extremities. Mild relatively symmetric appearing streaky subcutaneous density in the bilateral flank regions is noted. Similar ovoid skin thickening along the anterior aspect of the pelvis on the right is noted compared to the prior PET-CT in a region measuring 6.3 x 2.3 cm on series 3, image 121 without elevated uptake which may represent scarring (previous SUV max 3.3). METRICS: Mediastinal blood pool: SUV max 2.5 [facility] SUBSEQ [id number] IMPRESSION: 1. Interval increased density within a lesion involving the right liver lobe likely reflecting post treatment changes. There is been interval resolution of abnormal elevated uptake in this region compared with the prior PET-CT which may represent interval response to therapy. Correlation with clinical history is recommended. 2. A non hypermetabolic low-density lesion within the left liver lobe is decreased in size suggesting possible response to therapy. 3. Interval decrease in mild uptake within an ovoid region of skin thickening along the anterior right pelvis. 4. No new areas of radiotracer avid malignancy. 5. Additional nonurgent findings as detailed above.
== END 2023-06-08 05:53 | disposition home or self-care (01) ==
LOC: RAD 06-09 06:16
PROVIDERS: PCP Family Medicine; Visit Provider Family Medicine
DX: C43.59 Malignant melanoma of other part of trunk (principal); C22.0 Liver cell carcinoma; Z85.41 Personal history of malignant neoplasm of cervix uteri
CPT/HCPCS: 78815; A9552

== ENCOUNTER → 2024-06-30 10:28 | Outpatient (BNVA) | payer MEDICARE, MEDICAID, SELFPAY | PROVIDERS: PCP Family Medicine; Visit Provider Podiatrist Foot & Ankle Surgery | DX: L97.512 Non-pressure chronic ulcer of other part of right foot with fat layer exposed (principal) | CPT/HCPCS: 87070; 87075; 87205 ==

== ENCOUNTER → 2024-07-21 11:14 | Outpatient (BNVA) | payer MEDICARE, MEDICAID, SELFPAY | PROVIDERS: PCP Family Medicine; Visit Provider Podiatrist Foot & Ankle Surgery | DX: E11.42 Type 2 diabetes mellitus with diabetic polyneuropathy (principal); I73.9 Peripheral vascular disease, unspecified; L97.512 Non-pressure chronic ulcer of other part of right foot with fat layer exposed; E11.621 Type 2 diabetes mellitus with foot ulcer; Z79.4 Long term (current) use of insulin | CPT/HCPCS: 99213 ==

== ENCOUNTER → 2024-08-11 11:13 | Outpatient (BNVA) | payer MEDICARE, MEDICAID, SELFPAY | PROVIDERS: PCP Family Medicine; Visit Provider Podiatrist Foot & Ankle Surgery | DX: E11.42 Type 2 diabetes mellitus with diabetic polyneuropathy (principal); I73.9 Peripheral vascular disease, unspecified; L97.512 Non-pressure chronic ulcer of other part of right foot with fat layer exposed; E11.621 Type 2 diabetes mellitus with foot ulcer | CPT/HCPCS: 99213 ==

== ENCOUNTER 2025-01-31 09:25 | Outpatient (CLI) | payer MEDICARE, MEDICAID, SELFPAY ==
--- NOTE | 2025-01-31 09:48 | NM_ITS ---
WS: [id number] NUCLEAR MEDICINE HIDA SCAN WITH GALLBLADDER EJECTION FRACTION HISTORY: RUQ PAIN COMPARISON: None available. TECHNIQUE: The patient was intravenously injected with 8.1 mCi of TC99m Mebrofenin. Immediate imaging over the right upper quadrant was followed by 5 minute image and additional images for a total of 60 minutes. Normal uptake of radiotracer throughout the liver. Activity identified in the gallbladder at 15 minutes and well distended by 60 minutes. Activity in the proximal small bowel was seen by 30 minutes. Good washout of the radiotracer from the liver by 60 minutes. The patient then drank 8 ounces of Ensure Plus. Ejection fraction at 60 minutes was 80%. Normal GB ejection fraction is 35-75%. Post fatty meal symptoms: None. NM/NM hepatobiliary w phar* [id number] IMPRESSION: 1. Normal HIDA scan. 2. Normal gallbladder ejection fraction.
== END 2025-01-31 09:26 | disposition home or self-care (01) ==
PROVIDERS: PCP Family Medicine
DX: R10.84 Generalized abdominal pain (principal)
CPT/HCPCS: 78227; A9537

== ENCOUNTER → 2025-05-10 10:36 | Outpatient (BNVA) | payer MEDICARE, MEDICAID, SELFPAY | PROVIDERS: PCP Family Medicine; Visit Provider Podiatrist Foot & Ankle Surgery | DX: M79.671 Pain in right foot (principal); M79.672 Pain in left foot; L84 Corns and callosities; M21.621 Bunionette of right foot; M21.622 Bunionette of left foot; E11.42 Type 2 diabetes mellitus with diabetic polyneuropathy; Z79.4 Long term (current) use of insulin | CPT/HCPCS: 73630; 99213 ==